=== PATIENT | female | born 1960 | race Caucasian/White ===

== ENCOUNTER 2020-01-14 14:15 | Outpatient (RCR) | payer OTHER, SELFPAY ==
--- NOTE | 2019-11-19 14:04 | PTOPEVAL ---
Thank you for referring this patient to [facility]. Please review, sign, date and return this plan of care ABBY. Pt referred to therapy due to chronic right shoulder pain with impingement. Recently received cortisone injection. She requires additional skilled therapy to address impairments, improve function with right UE, and provide skilled teaching for HEP and improved movement pattern. Cont PT 2-3x/wk x 6 wk. I agree with and certify that the following plan of care is medically necessary. Referring Physician Date Attending Provider: PHYSICIAN NOT ON STAFF Referring Provider: Dr. Gianfranco Mercedes MD *PT Outpatient Evaluation Start: 11/19/19 13:22 Freq: Status: Active Protocol: Document 11/19/19 13:21 CAP (Rec: 11/19/19 14:03 [facility] [id number]) Therapy Assessment Status Assessment Status Assessment Status Evaluation Outpatient Past Medical History Neurological History Hx Neurological Disorders No Significant History Cardiovascular History Hx Cardiac Disorders No Significant History Respiratory History Hx Respiratory Disorders No Significant History Gastrointestinal History Hx Gastrointestinal Disorders No Significant History Musculoskeletal History Hx Arthritis Yes: spine Hx Other Musculoskeletal Disorders Yes: cubital tunnel release, right Evaluation Information Problem Diagnosis right shoulder impingment Onset 2-3 years Cause unknown Subjective Information Reports she has been having Query Text:As Reported By Patient/ issues with her shoulder for Family the 2-3 years. Denies any injury that started the pain. She contributes her symptoms to her job. She received a cortison injection on 11/13/19. She reports increased pain and difficulty with all reaching activities. She is unable to sleep in her right shoulder due to pain. 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 She has increased pain with carrying objects. She will crocket for a hobby with increased neck pain more than shoulder pain. She has increased pain with resistance ex at the gym. She also performs cardio activities. She has to focus on not gaurding her shoulder
[2019-12-24 09:12] VITALS: BP_SYST 180
--- NOTE | 2019-12-24 13:32 | PTOPEVAL ---
Thank you for referring this patient to [facility]. Please review, sign, date and return this plan of care ABBY. Pt has received 6 therapy visits from 11/19/19-12/24/19 to address impairments related to right shoulder restrictions and pain. She is demonstrating progress with shoulder range, strength and function. She is progressing towards therapy goals. She requires additional skilled therapy to achieve max function. Recommend additional PT 2x/wk x 4 wk. I agree with and certify that the following plan of care is medically necessary. Referring Physician Date Admitting Provider: Attending Provider: PHYSICIAN NOT ON STAFF Referring Provider: *PT Outpatient Re-Evaluation Start: 11/19/19 13:22 Freq: Status: Active Protocol: Document 12/24/19 09:12 JORGE A (Rec: 12/24/19 09:49 JORGE A [email or web address]) Therapy Assessment Status Assessment Status Re-evaluation Evaluation Information Problem Diagnosis right shoulder impingment Onset 2-3 years Cause unknown Additional Evaluation Detail Reports she has been having issues with her shoulder for the 2-3 years. She received a cortison injection on 11/13/19. Subjective Information She reports the tape did help Query Text:As Reported By Patient/ her pain and soreness of the Family shoulder. She is sore today after pulling weeds for 1 hour yesterday. She is able to perform reaching act better, but cont to have pain and soreness. 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 Any weight hanging from her arms causes increased pain. She also c/o right thumb pain and weakness that limits her performing with fine motor activities. She is performing her HEP consistently. Pain Assessment Timing of Pain Assessment Timing of Pain Assessment Re-assessment Pain Scale Pain Scale Used Numeric (1 - 10) Self Report Pain Assessment Right Shoulder(s) Reported Pain Level 3 Pain Description Soreness,Tightness Pain Frequency Chronic Lowest Pain Intensity 1 Greatest Pain Intensity 8 Pain Aggravating Factors Exercise/Activity,Lifting,
--- NOTE | 2020-01-01 11:34 | PCPTNOTE ---
Patient called & cancelled scheduled appointment this date due to no reason provided.
--- NOTE | 2020-01-03 15:01 | PCPTNOTE ---
Patient called & cancelled scheduled appointment this date due to car issues.
[2020-01-07 14:32] VITALS: BP_SYST 170
--- NOTE | 2020-01-15 16:10 | PCPTNOTE ---
Admitting Provider: Attending Provider: PHYSICIAN NOT ON STAFF Patient:Laura Arreola Date of :1960 Patient has been seen for 10 PT visits from 11/19/2019 to 01/14/20. She demonstrates improved UE function, improved shoulder range and strength. She is indep with her HEP. She has reached maximal potential with skilled therapy at this time. The goals have been partially met. Thank you for referring this patient to [facility]. Please review, sign, date and return this discharge summary ABBY. I have been updated about the patient's current status and I agree with discharge from the above service at this time. Referring Physician Date
== END 2020-01-16 08:38 | disposition home or self-care (01) ==
LOC: ANHPT 14:15
DX: M75.41 Impingement syndrome of right shoulder (principal)
CPT/HCPCS: 97110; 97140; 97161

== ENCOUNTER 2021-09-05 14:27 | Emergency (ER) | payer OTHER, SELFPAY ==
[2021-09-05 14:39] VITALS: BP 115/78; PULSE 87; RESP 12; TEMP 36.7; O2SAT 100
--- NOTE | 2021-09-05 15:15 | ED.FEMALEGU ---
HPI - Female Genitourinary General Chief complaint: Urogenital-Female Stated complaint: pos uti/kidney inf Time Seen by Provider: 09/05/21 15:04 Source: patient and RN notes reviewed Mode of arrival: ambulatory Limitations: no limitations History of Present Illness HPI Narrative: Patient presents today complaining of a 4 to 5-day history of dysuria, urinary frequency, and mild left flank pain. Denies fever, chills, sweats, or any additional symptoms. She took a dose of Azo approximately 3 hours prior to arrival. No recent antibiotic use. MD elicited complaint: UTI Related Data Home Medications Medication Instructions Recorded Confirmed Glucosamine 09/05/21 Zyrtec 09/05/21 cyclobenzaprine mg 09/05/21 estradiol-norethindrone acet tablet 09/05/21 meloxicam 09/05/21 Allergies Allergy/AdvReac Type Severity Reaction Status Date / Time codeine Allergy Unknown Verified 09/13/18 13:49 Review of Systems Review of Systems: CONSTITUTIONAL: Denies body aches, fever, chills, or sweats. EYES: Denies visual changes, redness, or discharge. ENT: Denies rhinorrhea, congestion, sore throat, or otalgia. CARDIOVASCULAR: Denies chest pain, palpitations, or edema. RESPIRATORY: Denies cough or dyspnea. GASTROINTESTINAL: Denies abdominal pain, nausea, vomiting, or diarrhea. GENITOURINARY: + Dysuria, frequency, left flank pain. Denies hematuria SKIN: Denies rash, itching, or wounds. MUSCULOSKELETAL: Denies back pain, joint pain, or myalgia. NEUROLOGIC: Denies headache, numbness, tingling, or weakness. PSYCH: Denies depression or anxiety. PMFSH Social History Social History Smoking status: Never smoker Alcohol intake: current Comments At time of signature, I have reviewed and agree with nursing past medical, surgical, social and family history unless otherwise noted. Please see nursing chart for further information. There is no relevant family history pertinent to the presenting complaint Exam Narrative: GENERAL: Well-appearing, well-nourished, and in no acute distress. HEAD: Normocephalic, atraumatic. EYES: EOMI. No redness or drainage. Conjunctivae normal. ENT: Mucous membranes pink and moist. NECK: Normal AROM. CHEST: No respiratory distress. Clear to auscultation. HEART: Regular rate and rhythm. No murmur appreciated. Normal peripheral pulses. ABDOMEN: Soft, nondistended, normal active bowel sounds. Mild suprapubic tenderness.-CVAT MUSCULOSKELETAL: No bony tenderness. EXTREMITIES: Normal range of motion. No edema. SKIN: Warm, dry, no rash. Capillary refill normal. Normal skin turgor. NEURO: No focal deficits. Alert and oriented x3. Gait steady. PSYCH: Normal affect. No signs of depression or anxiety. Course Vital Signs Vital signs: Vital Signs Temperature 98.1 F 09/05/21 14:39 Pulse Rate 87 09/05/21 14:39 Respiratory Rate 12 09/05/21 14:39 Blood Pressure 115/78 09/05/21 14:39 Pulse Oximetry 100 09/05/21 14:39 Temperature 98.1 F 09/05/21 14:39 Pulse Rate 87 09/05/21 14:39 Respiratory Rate 12 09/05/21 14:39 Blood Pressure 115/78 09/05/21 14:39 Pulse Oximetry 100 09/05/21 14:39 Reviewed MDM - Female Genitourinary Differential Diagnosis Differential diagnosis: Likely urinary tract infection, vaginitis and cystitis Lab Data Attestation: I reviewed the patient's lab results. Labs: Urine Glucose Trace Reference Range: Negative Urine Bilirubin 1+ Reference Range: Negative Urine Ketone Trace Reference Range: Negative Urine Specific [place] 1.020 Reference Range:1.001-1.035 Urine Blood Negat
== END 2021-09-05 15:23 | disposition home or self-care (01) ==
PROVIDERS: Emergency Provider Nurse Practitioner; PCP Nurse Practitioner
DX: N30.00 Acute cystitis without hematuria (principal)
CPT/HCPCS: 81003; 87086; 99213; G0463

== ENCOUNTER 2022-06-30 14:27 | Outpatient (CLI) | payer OTHER, SELFPAY ==
--- NOTE | ~2022-06-30 | MR_ITS ---
EXAMINATION: MR brain/brain stem wo/w con DATE: 06/30/2022 15:33 INDICATION: Chronic hemifacial spasm. TECHNIQUE: Magnetic resonance imaging (MRI) of the brain and brainstem was performed without and with 11 mL MultiHance intravenous contrast. COMPARISON: None. FINDINGS: There are scattered areas of nonspecific increased T2-weighted signal intensity in the cere bral white matter, which is within normal limits for the patient's age. There is no intracranial hemo rrhage, acute infarction, or abnormal intracranial mass lesion. The ventricles are normal in size. Th e trigeminal nerves and facial nerves are normal. The paranasal sinuses are clear. The orbits are nor mal. There is a small right mastoid effusion. The internal auditory canals and inner and middle ears are normal. IMPRESSION: 1. Normal aging brain. Reviewed, dictated and finalized at location A. IMPRESSION: 1. Normal aging brain.
== END 2022-06-30 14:28 | disposition home or self-care (01) ==
PROVIDERS: PCP Nurse Practitioner; Visit Provider Specialist
DX: G51.32 Clonic hemifacial spasm, left (principal)
CPT/HCPCS: 70553; A9577

== ENCOUNTER 2025-01-21 11:27 | Emergency (ER) | payer OTHER, SELFPAY ==
--- NOTE | ~2025-01-21 | XR_ITS ---
XR chest 2V Ordering provider: Heather Goncalves History: 64 years Female with . palpitations, SOB . Comparison: None. FINDINGS: MEDIASTINUM: The cardiac silhouette is not enlarged. LUNGS: No infiltrates, effusions or pneumothorax. OTHER: No free air under the diaphragm. IMPRESSION: No acute cardiopulmonary pathology. Reviewed, dictated and finalized at location A.
[2025-01-21 11:36] VITALS: BP 131/75; PULSE 88; RESP 17; TEMP 36.6; O2SAT 99
--- NOTE | 2025-01-21 13:19 | ED_ITS ---
HPI - Female Genitourinary General Chief complaint: Urogenital-Female <Heather Goncalves PA-C - Last Filed: 01/22/25 09:14> Stated complaint: UTI symptoms <Heather Goncalves PA-C - Last Filed: 01/22/25 09:14> Time Seen by Provider: 01/21/25 13:19 <Heather Goncalves PA-C - Last Filed: 01/22/25 09:14> Focused HPI: This is a 64 year old female that presents to the ER for urinary symptoms. Reports urinary frequency, back pain, dysuria. Also reports she feels like her heart is racing and she is having trouble catching her breath during these episodes. Also reports swelling in her ankles. Denies fever, chest pain, vomiting. GENERAL: Well-appearing, well-nourished, and in no acute distress. HEAD: Normocephalic, atraumatic. CHEST: Clear to auscultation. ?No respiratory distress. HEART: Regular rate and rhythm.? NEURO: ?Alert and oriented x3. Patient screened in triage and initial orders placed.? ?Additional care and disposition to be based upon?diagnostic testing and treatment. <Heather Goncalves PA-C - Last Filed: 01/22/25 09:14> History of Present Illness HPI Narrative: I agree with the above HPI <Tee Thornton MD - Last Filed: 01/21/25 21:47> Related Data Home medications: Home Medications ?Medication ?Instructions ?Recorded ?Confirmed ?Last Taken ?Type Zyrtec 09/05/21 05/14/24 Unknown History cholecalciferol (vitamin D3) PO 03/16/22 05/14/24 Unknown History zinc acetate 50 mg (zinc) capsule 50 mg PO DAILY 03/16/22 05/14/24 Unknown History (Galzin) <Heather Goncalves PA-C - Last Filed: 01/22/25 09:14> Allergies/Adverse reactions: Allergies Allergy/AdvReac Type Severity Reaction Status Date / Time sulfamethoxazole (From Allergy Mild Itching Verified 01/21/25 11:43 Bactrim) trimethoprim (From Bactrim) Allergy Mild Itching Verified 01/21/25 11:43 codeine Allergy Unknown Unknown Verified 01/21/25 11:43 <Heather Goncalves PA-C - Last Filed: 01/22/25 09:14> Review of Systems 2 Review of Systems: All systems reviewed & are unremarkable except as noted in HPI and below <Tee Thornton MD - Last Filed: 01/21/25 21:47> PMFSH Past Medical History Medical History: Medical History Abnormal Pap smear of cervix Breast implant removal status (05/13/22) Ruptured silicone breast implant Screening mammogram, encounter for <Heather Goncalves PA-C - Last Filed: 01/22/25 09:14> Surgical History Surgical History: Surgical History History of appendectomy History of tonsillectomy <Heather Goncalves PA-C - Last Filed: 01/22/25 09:14> Family History Family History: Family History Father Hypertension Diabetes mellitus Mother Breast cancer Daughter Multiple sclerosis <Heather Goncalves PA-C - Last Filed: 01/22/25 09:14> Social History Social History: Social History (Updated 05/14/24 @ 09:30 by Chica Quach MA) Smoking status: Never smoker Alcohol intake: current Alcohol use details: 1-2 month Substance use: never Substance use type: does not use Do You Feel Safe in your Home?: Yes Lack of Transportation: No Lack of Food: Never True Current Housing: I Have Housing Concerned About Future Housing: No Difficulty Paying Gas/Electric Bills: No Difficulty Paying for Meds: No Currently Unemployed: No Education: High School Diploma/GED Difficulty w/ Childcare or Family Care: No Living arrangements: other Additional living arrangements comments: significant other Occupation/Education: occupation 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 HEAD: normocephalic, atraumatic. EYES: PERRLA/EOMI, conjunctivae clear. NOSE: Normal no drainage EARS:TMS clear with good light reflex. THROAT: Pharynx clear, no exudate. NECK: Supple. No adenopathy, no masses. RESPIRATORY: Airway patent, respirations nonlabored. Clear to auscultation bilaterally, no rales, rhonchi, wheezing. CARDIOVASCULAR: Regular rate and rhythm without murmurs rubs or gallops. ABDOMINAL: Soft, nontender, nondistended, normal bowel sounds MUSCULOSKELETAL: Moves all extremities. Strength/ROM intact, No edema, No calf tenderness. NEURO: Alert. Cranial nerves II through XII intact. Good gait. Good coordination SKIN: Warm, dry. Normal Color <Tee Thornton MD - Last Filed: 01/21/25 21:47> Course Vital Signs Vital signs: Vital Signs Temperature 97.9 F 01/21/25 11:36 Pulse Rate 88 01/21/25 11:36 Respiratory Rate 17 01/21/25 11:36 Blood Pressure 131/75 01/21/25 11:36 Pulse Oximetry 99 01/21/25 11:36 Oxygen Delivery Room Air 01/21/25 11:36 Temperature 98.2 F 01/21/25 18:04 Pulse Rate 88 01/21/25 18:04 Respiratory Rate 17 01/21/25 18:04 Blood Pressure 137/74 01/21/25 18:04 Pulse Oximetry 97 01/21/25 18:04 Oxygen Delivery Room Air 01/21/25 11:36 <Heather Goncalves PA-C - Last Filed: 01/22/25 09:14> Vital Signs Temperature 97.9 F 01/21/25 11:36 Pulse Rate 88 01/21/25 11:36 Respiratory Rate 17 01/21/25 11:36 Blood Pressure 131/75 01/21/25 11:36 Pulse Oximetry 99 01/21/25 11:36 Oxygen Delivery Room Air 01/21/25 11:36 Temperature 98.2 F 01/21/25 18:04 Pulse Rate 88 01/21/25 18:04 Respiratory Rate 17 01/21/25 18:04 Blood Pressure 137/74 01/21/25 18:04 Pulse Oximetry 97 01/21/25 18:04 Oxygen Delivery Room Air 01/21/25 11:36 <Tee Thornton MD - Last Filed: 01/21/25 21:47> MDM - Female Genitourinary MDM Narrative Medical decision making narrative: 64-year-old female presents emergency department for evaluation for intermittent rapid heart rate. Patient is not tachycardic emergency department. Patient is afebrile with no leukocytosis and a stable hemoglobin of 13.6. No significant abnormalities on the patient's CMP. Patient's pro BNP is not elevated. UA was negative for infection. Chest x-ray shows no acute cardiopulmonary abnormality. Patient was updated on Ortho workup. Patient was comfortable plan for discharge and close follow-up with her primary care physician with anticipated plan of getting set up with a Holter monitor as outpatient. All questions concerns were addressed patient was well-appearing at time of discharge. <Tee Thornton MD - Last Filed: 01/21/25 21:47> Differential Diagnosis Differential diagnosis: Likely urinary tract infection and other (AFib, SVT, sinus tachycardia) < Tee Thornton MD - Last Filed: 01/21/25 21:47> Lab Data Attestation: I reviewed the patient's lab results. <Tee Thornton MD - Last Filed: 01/21/25 21:47> Result diagrams: 01/21/25 14:42 01/21/25 14:42 <Heather Goncalves PA-C - Last Filed: 01/22/25 09:14> Labs: Lab Results 01/21/25 01/21/25 Range/Units 13:20 14:42 WBC 9.6 (4.5-10.0) K/mm3 RBC 4.40 (4.2-5.4) M/mm3 Hgb 13.6 (12.0-15.0) g/dL Hct 42.0 (37.0-47.0) % MCV 95.5 (80-100) fl MCH 30.9 (26-34) pg MCHC 32.4 (32-36) g/dl RDW 11.9 (11.5-14.5) % Plt Count 358 (150-375) k/mm3 MPV 8.7 (7.4-10.4) fl Immature Gran % (Auto) 0.6 H (0-0.5) % Neut % (Auto) 65.7 (45.5-73.1) % Lymph % (Auto) 24.4 (18.3-44.2) % Mcdonald % (Auto) 8.3 (2.6-8.5) % Eos % (Auto) 0.6 (0-4.4) % Baso % (Auto) 0.4 (0.2-1.2) % Lymph # (Auto) 2.34 (0.9-3.2) K/mm3 Mcdonald # (Auto) 0.8 H (0.1-0.6) K/mm3 Eos # (Auto) 0.1 (0-0.3) K/mm3 Baso # (Auto) 0.0 (0.0-0.1) K/mm3 Abs Immat Gran (auto) 0.06 H (0.00-0.031) K/mm3 Absolute Neuts (auto) 6.3 (1.3-6.7) K/mm3 Absolute Nucleated RBC 0.000 (0.0-0.012) K/mm3 Nucleated RBC % 0.0 (0.0-0.2) % Sodium 140 (137-145) mmol/L Potassium 3.9 (3.4-5.0) mmol/L Chloride 102 (98-107) mmol/L Carbon Dioxide 28 (22-30) mmol/L Anion Gap 10 (4-12) mmol/L BUN 11 (7-17) mg/dL Creatinine 0.54 L (0.7-1.0) mg/dL Estim Creat Clear Calc 69 ml/min Estimated GFR > 60 (59 - ) Glucose 94 (65-110) mg/dL Calcium 9.6 (8.4-10.2) mg/dL Total Bilirubin 0.2 (0.2-1.3) mg/dL AST 37 H (14-36) U/L ALT 41 H (6-35) U/L Alkaline Phosphatase 131 H (38-126) U/L NT-Pro-B Natriuret Pep 80 (19.9-100) pg/mL Total Protein 8.0 (6.3-8.2) g/dL Albumin 4.5 (3.5-5.1) g/dL Urine Color Yellow (Yellow) Urine Appearance Clear (Clear) Urine pH 7.0 (5.0-9.0) Ur Specific [place] 1.015 (1.001-1.035) Urine Protein Negative (Negative) mg/dL Urine Glucose (UA) Negative (Negative) mg/dL Urine Ketones Negative (Negative) mg/dL Ur Blood (Man) Negative (Negative) Urine Nitrate Negative (Negative) Urine Bilirubin Negative (Negative) Urine Urobilinogen 0.2 (<2.0) mg/dL Leukocyte Esterase Rfl Negative (Negative) CELESTINO/UL <Heather Goncalves PA-C - Last Filed: 01/22/25 09:14> Lab Results 01/21/25 01/21/25 Range/Units 13:20 14:42 WBC 9.6 (4.5-10.0) K/mm3 RBC 4.40 (4.2-5.4) M/mm3 Hgb 13.6 (12.0-15.0) g/dL Hct 42.0 (37.0-47.0) % MCV 95.5 (80-100) fl MCH 30.9 (26-34) pg MCHC 32.4 (32-36) g/dl RDW 11.9 (11.5-14.5) % Plt Count 358 (150-375) k/mm3 MPV 8.7 (7.4-10.4) fl Immature Gran % (Auto) 0.6 H (0-0.5) % Neut % (Auto) 65.7 (45.5-73.1) % Lymph % (Auto) 24.4 (18.3-44.2) % Mcdonald % (Auto) 8.3 (2.6-8.5) % Eos % (Auto) 0.6 (0-4.4) % Baso % (Auto) 0.4 (0.2-1.2) % Lymph # (Auto) 2.34 (0.9-3.2) K/mm3 Mcdonald # (Auto) 0.8 H (0.1-0.6) K/mm3 Eos # (Auto) 0.1 (0-0.3) K/mm3 Baso # (Auto) 0.0 (0.0-0.1) K/mm3 Abs Immat Gran (auto) 0.06 H (0.00-0.031) K/mm3 Absolute Neuts (auto) 6.3 (1.3-6.7) K/mm3 Absolute Nucleated RBC 0.000 (0.0-0.012) K/mm3 Nucleated RBC % 0.0 (0.0-0.2) % Sodium 140 (137-145) mmol/L Potassium 3.9 (3.4-5.0) mmol/L Chloride 102 (98-107) mmol/L Carbon Dioxide 28 (22-30) mmol/L Anion Gap 10 (4-12) mmol/L BUN 11 (7-17) mg/dL Creatinine 0.54 L (0.7-1.0) mg/dL Estim Creat Clear Calc 69 ml/min Estimated GFR > 60 (59 - ) Glucose 94 (65-110) mg/dL Calcium 9.6 (8.4-10.2) mg/dL Total Bilirubin 0.2 (0.2-1.3) mg/dL AST 37 H (14-36) U/L ALT 41 H (6-35) U/L Alkaline Phosphatase 131 H (38-126) U/L NT-Pro-B Natriuret Pep 80 (19.9-100) pg/mL Total Protein 8.0 (6.3-8.2) g/dL Albumin 4.5 (3.5-5.1) g/dL Urine Color Yellow (Yellow) Urine Appearance Clear (Clear) Urine pH 7.0 (5.0-9.0) Ur Specific [place] 1.015 (1.001-1.035) Urine Protein Negative (Negative) mg/dL Urine Glucose (UA) Negative (Negative) mg/dL Urine Ketones Negative (Negative) mg/dL Ur Blood (Man) Negative (Negative) Urine Nitrate Negative (Negative) Urine Bilirubin Negative (Negative) Urine Urobilinogen 0.2 (<2.0) mg/dL Leukocyte Esterase Rfl Negative (Negative) CELESTINO/UL <Tee Thornton MD - Last Filed: 01/21/25 21:47> Imaging Data Radiologist's impression: Impressions Chest X-Ray 01/21/25 13:51 IMPRESSION: No acute cardiopulmonary pathology. <Tee Thornton MD - Last Filed: 01/21/25 21:47> Critical Care Time Critical Care Time Critical Care Time: No <Heather Goncalves PA-C - Last Filed: 01/22/25 09:14> Discharge Plan Discharge Clinical Impression: Heart palpitations <Heather Goncalves PA-C - Last Filed: 01/22/25 09:14> Patient Disposition: Home <Heather Goncalves PA-C - Last Filed: 01/22/25 09:14> Condition: Stable <Heather Goncalves PA-C - Last Filed: 01/22/25 09:14> Instructions: Antibiotic Form, Heart Palpitations (DC) <Heather Goncalves PA-C - Last Filed: 01/22/25 09:14> Additional Instructions: Have close follow-up with your primary care physician. If you have any worsening symptoms and please call or return to the emergency department. <Heather Goncalves PA-C - Last Filed: 01/22/25 09:14> Patient Language: Macanese <Heather Goncalves PA-C - Last Filed: 01/22/25 09:14> Prescriptions: No Action Zyrtec Galzin 50 mg (zinc) capsule 50 mg PO DAILY cholecalciferol (vitamin D3) PO <Heather Goncalves PA-C - Last Filed: 01/22/25 09:14> Follow-up/Referrals: PHYSICIAN,POULTRY INSEMINATOR [Primary Care Provider] - <Heather Goncalves PA-C - Last Filed: 01/22/25 09:14>
--- NOTE | 2025-01-21 13:20 | ECG_ITS ---
Test Date: 2025-01-21 14:38:43 Measurements Intervals [place] Rate: 86 P: 73 [place]: 160 QRS: 51 QRSD: 81 T: 74 QT: 368 QTc: 442 Interpretive Statements SINUS RHYTHM BASELINE ARTIFACT- I, III NORMAL ECG No previous ECG available for comparison Electronically Signed On 01-21-2025 14:51:50 CDT by Jeremy Dumont D.O.
--- OUTSIDE RECORDS SUMMARY | 2025-01-21 13:30 | XMS_ITS | Patient Health Record ---
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 Phone Lawrence Menon Primary Care Provider Allergies Allergen (clinical drug ingredient) Drug/Non Drug Allergy documented on EMR Reaction Allergy Type Onset Date Status codeine codine (uncoded) Unknown Allergy Act pieter Reason For Referral No Information Medications Medication SIG (Take, Route, Frequency, Duration) Notes Start Date End Date Status Allergy Relief Cetirizine 10 MG 1 tablet as needed Orally Once a day Active Cyclobenzaprine HCl 10 MG 1 tablet at be dtime as needed Orally Once a day for 30 day(s) Active Medrol (Roderick) 4 MG as directed Orally 08/09/2022 Not-Taking hydrOXYzine HCl 25 mg TAKE 1 TABLET BY MOUTH THREE TIMES A DAY NEEDED for 30 Active Meloxicam 15 mg TAKE 1 TABLET BY MOUTH DAILY for 30 Active Fluticasone Propionate 50 MCG/ACT 1 spray in each nostril Nasally twice a day 08/26/2022 Active Activella 1-0.5 MG 1 tablet Orally Once a day for 30 day(s) Active Zinc 50 MG 1 tablet Orally Once a day for 30 day(s) Active Glucosamine Active Vitamin D-3 25 MCG (1000 UT) 1 capsule Orally Once a day for 30 day(s) Active One Daily - 1 tablet Orally Once a day for 30 day(s) Active Immunizations Vaccine Route Administration Date Status Comme nts FLU VAC NO PRSV 4VAL 6 mo+ IM Intramuscular 07/28/2021 Administered pt tolerated we ll. COVID-19 Moderna 2nd IM Intramuscular 06/05/2021 Administered EUA date 0. Consent signed and reviewed. Patient tolerated well. COVID-19 Moderna 1ST IM Intramuscular 05/08/2021 Administered Social History Tobacco Use: Social History Observation Description Date Details (start date - stop date) Never Smoker NA - NA Sex Assigned At : Social History Observation Description Sex Assigned At Female Dont use, Tobacco Use/Smoking Question Answer Notes Are you a nonsmoker Problems Problem Type SNOMED Code ICD Code Onset Dates Problem Status W/U Status Risk Notes Problem 92600368 Other chronic pain (G89.29) Active confirmed Problem Depression (535826919) Depression (F32.9) Active confirmed Problem 19982423 Anxiety (F41.9) Active confirmed Problem 984796532 Recurrent sinusitis (J32.9) Active confirmed Problem [id number] 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 Plan Of Treatment No Information Insurance Providers Payer Name Payer Address Payer Phone Subscriber Number Group Number Insured Name Patient Relationship to Insured Coverage Start Date Coverage End Date [facility] Attn Claims Department [address] [place] [id number] [phone] [id number] Laura Arreola Self - patient is the insured 1 [facility] Attn Claims Department [address] [address] [phone] [id number] Laura Arreola Self - patient is the insured 1 [facility] Attn Claims Department [address] [address] [phone] [id number] Laura Arreola Self - patient is the insured 2 Medical (General) History Surgical History Surgery Date(Month/Year) appendectomy tonsillectomy endometrial ablation breast augmentation Hospitalization History Reason Date(Month/Year) childbirth
--- OUTSIDE RECORDS SUMMARY | 2025-01-21 13:31 | XMS_ITS | Data Portability ---
Author Organization [place] - [facility], Main Office Address [address] [place] [address] Care Team Providers Care Cloud Consultant Name Role Phone MEGAN KRAFT Primary Care Provider [phone] MEGAN KRAFT Referring Provider ISELA MUSA Metal Plater ESTEPHANIE DELUNA Team Leader/Research Psychologist Assessment Encounter Date Assessment Date Assessment LastModified by Organization Details LastModified Time 02/02/2024 02/02/2024 10/14/2023: Chol 217, LDL 136 Not available 02/02/2024 10:28:56 02/08/2024 02/08/2024 10/14/2023: Chol 217, LDL 136 Not available 02/08/2024 16:37:00 02/10/2024 02/10/2024 The patient has severe osteoarthritis of the 1st carpometacarpal joint at the base of the thumb. She had a recent contusion to the dorsum of her wrist but this is only causing her mild discomfort her main complaint is with the basilar thumb joint. We talked about treatment options today she inquired about surgical options I discussed this in detail with her today including the procedure itself risks benefits limitations and alternatives and the recovery. And rehab and therapy that is involved postoperatively. For now she would like to try conservative measures I offered her oral prednisone and a shot of cortisone she wanted to proceed therefore under sterile conditions I injected the patient's right thumb into the CMC joint with 2 cc of 0.5% bupivacaine plain and 10 mg of Kenalog. The patient tolerated the procedure well. I will see her back in 6 weeks to see what impact treatment has had. She will use Tylenol for pain as needed try to avoid heavy repetitive use of the hand but her occupation precludes that for the most part. We will try conservative measures for awhile if she fails them her final option would be trapezial excision with suspension arthroplasty at the basilar thumb joint. She voiced understanding agrees with the above plan she will call for any further problems difficulties or questions. 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 We talked about treatment options we could give her a shot of cortisone every 3 months if necessary it has only been 2 months she declined any further treatment today she states it is tolerable for now. She will take Tylenol as needed we did talk about prescription nonsteroidal anti-inflammatory medication she declined a prescription she will take Advil or Aleve [id number] when necessary. She states she had a reaction to meloxicam 1 time so she wants to avoid those medications if possible. We did talk about surgical options in detail today I described the procedure to her for trapezial excision and suspension arthroplasty. She is going to wait as long as she can before she decides to go through with that. For now she will get by with conservative measures. She will call when she is ready for another shot of cortisone. She voiced understanding and agrees above plan she will call for any further problems difficulties or questions. We did talk about icing after a long day at work as well. Not available 04/09/2024 10:15:58 07/10/2024 07/10/2024 10/14/2023: Chol 217, LDL 136 07/03/2024: Chol 225, LDL 134 ALT 36 Not available 07/10/2024 17:22:23 Plan of Treatment Reminders Order Date Submit Date Provider Last Modified By Organization Details Last Modified Time Details Appointments None recorded. Lab vitamin D, 25-hydroxy , total, serum 2023 024 [email or web address], [address] [facility], [place], [address], 04/17/202 5 08:57:56 CMP, serum or plasma 2023 024 [email or web address], [address], [place], [address], 5 08:57:56 CBC w/ auto diff 2023 024 [email or web address] [facility], [address], [place], [address], 5 08:57:56 TSH + free T4, serum 2023 024 [email or web address] [facility], [address], [place], [address], 5 08:57:56 lipid panel, serum 2023 024 [email or web address], [address], [place], [address], 5 08:57:56 vitamin D, 25-hydroxy , total, serum 2023 024 [email or web address], [address], [place], [address], 4 11:50:15 CMP, serum or plasma 2023 024 [email or web address], [address], [place], [address], 4 11:50:15 CBC w/ auto diff 2023 024 [email or web address] [facility], [address], [place], [address], 4 11:50:16 TSH + free T4, serum 2023 024 STEPHANIE [facility], [address], [place], [address], 4 15:02:06 lipid panel, serum 2023 024 [email or web address] [facility], [address], [place], [address], 5 09:20:52 vitamin D, 25-hydroxy , total, serum 2023 024 [place] [address] [facility], [address], [place], [address], 4 11:50:15 CMP, serum or plasma 2023 024 [place] [address] [facility], [address], [place], [address], 4 11:50:14 CBC w/ auto diff 2023 024 [email or web address] [facility], [address], [place], [address], 4 11:50:14 TSH + free T4, serum 2023 024 [place] [address] [facility], [address] [facility], [place], [address], 4 11:50:15 lipid panel, serum 2023 024 [email or web address] [employer] [facility], [address] [facility], [place], [address], 4 11:50:[address] referral - Please call patient to schedule. 2023 024 [email or web address] Estephanie Deluna MD, [address], [address], [place], [address], 4 16:27:45 business intelligence reporting analyst referral - Please call patient to schedule. 2023 024 STEPHANIE Musa DPM, [address], [address], [place], [address], 4 10:37:43 orthopedic surgeon referral 2023 024 [email or web address] Hughes MD, [address] [facility], [place], [address], 4 09:28:32 Procedures colonoscop y screening (PROC) - Please call patient to schedule. 2023 024 [email or web address] Alaina Eagle MD, [address] [facility], [facility] [address], [place], [address], 4 16:15:04 injection/ aspiration joint/burs a (PROC) 2023 024 [email or web address] In-Office Order, Internal Use Only DO Not Attach Compendium DO Not Attach Compendium, Do Not Delete/merge, [id number] 4 12:33:00 colonoscop y screening (PROC) 2023 024 [email or web address] Gillian Gonzalez MD, [address] [facility], [facility] [address], [place], [address], 4 11:49:25 colonoscop y screening (PROC) 2023 024 rocky Gonzalez MD, [address] [facility], [facility] [address], [place], [address], 4 11:49:23 Surgeries None recorded. Imaging XR, wrist, 3 or more view - Stat hold and call Dr Reyna ramirez 2023 024 [facility] ([facility]), [address] [place], [address], 4 11:24:08 Medication Orders Crestor 10 mg tablet [email or web address] [facility], [address] [facility], [place], [address], 5 14:05:53 bupivacain e HCl 0.5 % (5 mg/mL) injection solution 2023 024 [email or web address] [facility], [address] [place] [address], [address], 4 13:54:12 Kenalog 10 mg/mL suspension for injection 2023 024 [email or web address] [facility], [address] [place] [address], [address], 4 13:54:12 prednisone 10 mg tablets in a dose pack 2023 024 [email or web address] [facility], [address] [place] [address], [address], 4 17:11:16 Patient TargetsNo targets recorded. Patient InstructionsNo instructions recorded. Reason for Referral Orthopedic Surgeon Referral for Pain of right wrist Referring Physician: Megan Kraft, Internal Medicine, Encounter Date: 02/02/2024 Metal Plater Referral for Plan tar fasciitis of right foot Please call patient to schedule. Referring Physician: Megan Kraft Internal Medicine, Encounter Date: 07/10/2024 Team Leader/Research Psychologist Referral for Sc reening for cardiovascular system disease Please call patient to schedule. Referring Physician: Megan Kraft Internal Medicine, Encounter Date: 07/10/2024 Results Created Date Observation Date Name Description Value Unit Range Abnormal Flag Note LastModifiedBy Organization Detail LastModifiedTime 02/02/20 24 02/02/2024 XR, wrist , 3 or more view [facility] [address] [id number] Alhaji ferrera Name: MARY JANE HENRIQUEZ Access ion #: [id number] Sex: F : 1959 4 Dictat ed By: Ashley Velasquez Attend ing Physic corina: HEATHER VILLATOROi Physic corina: HEATHER VILLATORO Exam Date: 2023 09:52 AM Exam Name: XR WRIST RT 3V+ Admitt ing Diagno sis(es ): CLINIC AL INDICA TION: pain right wrist TECHNI QUE: 3 radiog raphic views of the right wrist were obtain ed. Compar lance: none FINDIN GS/ IMPRES ORI: There is no eviden ce of acute fractu re or disloc ation. There is modera te osteoa rthros is of the first carpom etacar pal joint. There is no radiop aque foreig n body. Electr onical ly Signed by: Ashley Velasquez at 2023 10:22: 55 AM Page 1 [email or web address] [facility] (Imaging) [address] [place], [address], 05/07/2024 16:05:35 02/02/20 24 02/02/2024 imagi ng/di agnos tic resul t No observ ation record ed. [facility] [address] [place], [address], 02/02/2024 11:25:58 Result Notes None recorded. Problems Name Problem SNOMED Code Status Onset Date Resolution Date Notes Provider Name and Address Organization Details Recorded Time Menopausa l syndrome 797294358 Completed Not Available [facility] 3 14:59:04 Liver enzymes outside reference range 963290328 Completed Not Available [facility] 3 14:59:04 Abdominal pain 69321671 Active 2016 Not Available [facility] 3 14:59:04 Menopausa l symptom 61179237 Active Not Available [facility] 3 14:59:04 Weight increased 019487182 Active Not Available [facility] 3 14:59:04 Eruption 712191764 Active Not Available [facility] 3 14:59:04 Bronchiti s 29678733 Active Not Available [facility] 3 14:59:05 Sinusitis 84230537 Active Not Available [facility] 3 14:59:05 Osteoarth ritis 379087421 Active Not Available [facility] 3 14:59:05 Diarrhea 69260836 Active 2016 Not Available [employer] 3 14:59:05 Fatigue 49074873 Active Not Available [facility] 3 14:59:05 Groin mass 822639987 Active 2022 Dimitry yu MD [address], [address], [place], [address] , [facility] [employer] [facility] 3 13:39:01 Vitamin D deficienc y 49274309 Active 2023 Megan ramirez MD [address], [place], [address] , [facility] 4 15:48:21 Pain of left hip joint 69670657767 9100 Active 2023 Megan ramirez MD [address], [place], [address] , [facility] [employer] [facility] 4 16:01:57 Urinary symptoms 966804150 Active 2023 ERI Anderson, [facility] 4 16:51:31 Allergic rhinitis 59289289 Active 2023 ERI Anderson, [place] - [facility] 4 14:05:28 Pain of right wrist 86421601947 9100 Active 2023 Megan ramirez MD [address], [place], [address] , [facility] [employer] [facility] 4 10:17:13 Hyperlipi demia 23488369 Active 2023 Megan ramirez MD [address], [address], [place], [address] , [facility] 4 10:29:00 Osteoarth rosis of the carpometa carpal joint of the thumb 20509119 Active 2023 Magali Mitchell null, [facility] 4 12:31:23 Contusion of right wrist 05569906444 567967 Active 2023 KARMA Reese [address] [facility], [address] [address], [place], [address] , [facility] 4 14:17:33 Upper respirato ry infection 73764339 Active 2023 Louise Burt MA null, [facility] 4 12:50:10 Plantar fasciitis of right foot 07648221539 038077 Active 2023 Megan ramirez MD [address] [facility], [address] [address], [place], [address] , [facility] 4 17:33:26 Cough 85318900 Active 2023 Graciela Jaramillo MA null, [facility] 4 15:33:31 Acute urinary tract infection 141443674 Active 2024 Graciela Jaramillo MA null, [facility] 5 17:35:28 Problem Notes None recorded. Procedures Surgical History Date Name Laterality Status Provider Name and Address Organization Details Recorded Time 05/25/20 23 excision completed Diann Nicholson MA [facility] 05/26/2023 16:08:46 other completed Diann Nicholson MA [facility] 05/04/2023 15:19:31 Appendectomy completed Diann Nicholson MA [facility] 05/04/2023 15:19:41 Tonsillectomy completed Diann Nicholson MA [facility] 05/04/2023 15:19:49 Elbow arthroscopy/surge ry completed NIR Zamora [facility] 10/12/2023 15:34:20 other NIR Jones [facility] 10/12/2023 15:36:07 Imaging Results Imaging Date Name Status LastModified by Organiz [facility] Details LastModified Time 02/02/2024 XR, wrist, 3 or more view completed [email or web address] [facility] ([facility]) [address] [place], [address], 05/07/2024 16:05:35 02/02/2024 imaging/diag nostic result active [facility] [address] [place], [address], 02/02/2024 11:25:58 Procedure Notes None recorded. Medical Equipment None Reported. Allergies Allergen ID Allergen Name Allergen Category Reaction Reaction Severity Criticality Documentation Date Start Date Code Code System Note Provider Name and Address Organization Details Recorded Time 53812 codeine medicatio n itching Not available Not available 11/24/2022 2670 RxNorm Not Available [facility] 3 15:02:34 69259 Substance with sulfonami de structure and antibacte rial mechanism of action (substanc e) medicatio n nausea moderate Not available 05/05/2023 44958 8003 SNOMED Cristina taylor [place] [employer] 3 11:59:02 Medications Name Sig Start Date Stop Date Status Note LastModified by Organization Details LastModified Time amoxicill in 500 mg capsule TAKE 1 CAPSULE BY MOUTH THREE TIMES DAILY 10/12 completed Not Available Not Available Not Available Augmentin 875 mg-125 mg tablet Take 1 tablet every 12 hours by oral route. 2023 active Not Available Not Available Not Avai lable prednison e 10 mg tablet TAKE ONE TABLET BY MOUTH THREE TIMES DAILY FOR 3 DAYS, THEN 1 TAB TWICE DAILY FOR 2 DAYS, THE 1 TAB ONCE DAILY FOR ONE DAY active Not Available Not Available No t Available venlafaxi ne ER 75 mg capsule,e xtended release 24 hr Take 1 capsule every day by oral route for 90 days. active Not Available Not Available No t Available clindamyc in HCl 300 mg capsule TAKE 1 CAPSULE BY MOUTH EVERY 8 HOURS 10/12 completed Not Available Not Available Not Available azithromy js 250 mg tablet TAKE 2 TABLETS BY MOUTH FOR 1 DAY THEN TAKE 1 TABLET BY MOUTH DAILY FOR 4 DAYS active Not Available Not Available No t Available ibuprofen 800 mg tablet 01/18 completed Not Available Not Available Not Available fluconazo le 150 mg tablet Take one tablet PO, then repeat dose in 3 days 03/07 completed Not Available Not Available Not Available fluconazo le 200 mg tablet TAKE ONE TABLET BY MOUTH ON DAY ONE AND ONE TABLET 72 HOURS LATER 10/12 completed Not Available Not Available Not Available meloxicam 15 mg tablet TAKE 1 TABLET BY MOUTH ONCE DAILY 02/01 completed Not Available Not Available Not Available phenazopy ridine 200 mg tablet TAKE 1 TABLET BY MOUTH THREE TIMES DAILY 10/12 completed Not Available Not Available Not Available bupivacai ne HCl 0.5 % (5 mg/mL) injection solution Take 10 mg by injectio n route. 2023 active Not Available Not Available Not Avai lable prednison e 20 mg tablet TAKE 2 TABLETS BY MOUTH ONCE DAILY FOR 2 DAYS 10/12 completed Not Available Not Available Not Available ciproflox acin 500 mg tablet TAKE 1 TABLET BY MOUTH TWICE DAILY active Not Available Not Available No t Available sulfameth oxazole 800 mg-trimet hoprim 160 mg tablet TAKE 1 TABLET BY MOUTH EVERY 12 HOURS 10/12 completed Not Available Not Available Not Available omeprazol e 40 mg capsule,d elayed release Take 1 capsule every day by oral route. active Not Available Not Available No t Available tramadol 50 mg tablet TAKE 1 TABLET BY MOUTH EVERY 6 HOURS NEEDED FOR PAIN 10/12 completed Not Available Not Available Not Available prednison e 10 mg tablets in a dose pack Take 1 tab by mouth, 3 times a day for 3 daysTake 1 tab by mouth 2 times a day for 2 daysTake 1 tab by mouth once a day for 1 day 07/10 completed Not Available Not Available Not Available alprazola m 0.5 mg tablet TAKE 1 2 TO 1 TABLET 1 HOUR PRIOR TO APPOINTM ENT 10/12 completed Not Available Not Available Not Available Kenalog 10 mg/mL suspensio n for injection Take 10 mg by injectio n route. 2023 active ND: [id number] [id number] Not Available Not Available Not Available cephalexi n 500 mg capsule TAKE 1 CAPSULE BY MOUTH TWICE DAILY 10/12 completed Not Available Not Available Not Available venlafaxi ne 37.5 mg tablet 11/29 completed Not Available Not Available Not Available neomycin- polymyxin -dexameth 3.5 mg/mL-10, 000 unit/mL-0 .1% eye drops INSTILL 1 DROP INTO LEFT EYE THREE TIMES DAILY FOR 5 DAYS 10/12 completed Not Available Not Available Not Available nitrofura ntoin macrocrys larry 100 mg capsule TAKE 1 CAPSULE BY MOUTH TWICE DAILY 10/12 completed Not Available Not Available Not Available triamcino lone acetonide 0.1 % topical ointment APPLY 2 TO 3 OINTMENT TOPICALL Y TO THE AFFECTED AREA(S) ONCE DAILY FOR ITCHING 10/12 completed Not Available Not Available Not Available Gentle Laxative (bisacody l) 5 mg tablet,de layed release TAKE 6 TABLETS BY MOUTH AT 8AM ON 05/03/24 active Not Available Not Available No t Available diclofena c potassium 50 mg tablet Take 1 tablet 3 times a day by oral route. active Not Available Not Available No t Available omeprazol e 20 mg capsule,d elayed release Take 1 capsule twice a day by oral route active Not Available Not Available No t Available hydroxyzi ne HCl 25 mg tablet 10/12 completed Not Available Not Available Not Available zolpidem 5 mg tablet 11/29 completed Not Available Not Available Not Available Cheratuss in AC 10 mg-100 mg/5 mL oral liquid Take 10 mL 3 times a day by oral route. active Not Available Not Available No t Available ibuprofen 600 mg tablet Take 1 tablet 3 times a day by oral route. active Not Available Not Available No t Available Anusol-HC 25 mg rectal supposito ry Insert 1 supposit ory every day by rectal route at bedtime for 6 days. 05/02 completed Not Available Not Available Not Available methylpre dnisolone 4 mg tablets in a dose pack TAKE BY MOUTH DIRECTED ON INSIDE OF PACKAGE 10/12 completed Not Available Not Available Not Available fluticaso ne propionat e 50 mcg/actua tion nasal spray,clemente pension USE 1 SPRAY(S) IN EACH NOSTRIL ONCE DAILY NEEDED active Not Available Not Available No t Available naproxen 500 mg tablet Take 1 tablet twice a day by oral route as needed. active Not Available Not Available No t Available tobramyci n 0.3 %-dexamet hasone 0.1 % eye drops,clemente pension INSTILL 1 DROP INTO EACH EYE EVERY 6 HOURS FOR 3 DAYS 09/01 completed Not Available Not Available Not Available ezetimibe 10 mg tablet Take 1 tablet every day by oral route. active Not Available Not Available No t Available cyclobenz aprine 5 mg tablet Take 1 tablet(s ) BID and 2 tablets at bedtime. active Not Available Not Available No t Available rosuvasta tin 10 mg tablet TAKE 1 TABLET BY MOUTH ONCE DAILY 10/24 completed changed to Zetia 10/24/24 Not Available Not Available Not Available Prempro 0.3 mg-1.5 mg tablet Take 1 tablet every day by oral route. active Not Available Not Available No t Available nitrofura ntoin monohydra te/macroc rystals 100 mg capsule TAKE 1 CAPSULE BY MOUTH TWICE DAILY 10/12 completed Not Available Not Available Not Available Vitamin D3 active Not Available Not Available Not Available Sleep Aid (diphenhy dramine) active Not Available Not Available Not Available Multivita min 50 Plus active Not Available Not Available Not Available Elderberr y active Not Available Not Available Not Available ProAir HFA 90 mcg/actua tion aerosol inhaler 01/18 completed Not Available Not Available Not Available estradiol -norethin drone acet 0.5 mg-0.1 mg tablet TAKE 1 TABLET BY MOUTH ONCE DAILY 02/01 completed Not Available Not Available Not Available peg 3350-elec trolytes 236 gram-22.7 4 gram-6.74 gram-5.86 gram solution MIX AND TAKE ONE-HALF BY MOUTH AT 5PM ON 05/03/24, THEN TAKE ONE-HALF AT 5 AM ON 05/04/2407/10 completed Not Available Not Available Not Available omeprazol e 20 mg tablet,de layed release take 1 tablet twice a day by oral route 03/07 completed Not Available Not Available Not Available Allergy Relief (cetirizi ne) 10 mg tablet 10/12 completed Not Available Not Available Not Available Fluarix Quad (PF) 60 mcg (15 mcg x 4)/0.5 mL IM syringe 10/12 completed Not Available Not Available Not Available Fluzone Quad (PF) 60 mcg (15 mcg x 4)/0.5 mL IM syringe PHARMACI ST ADMINIST ERED IMMUNIZA TION ADMINIST ERED AT TIME OF DISPENSI NG 10/12 completed Not Available Not Available Not Available Afluria Qd 2019- (36 mos up)(PF)60 mcg (15 mcg x4)/0.5 mL IM syringe ADM 0.5ML IM UTD 10/12 completed Not Available Not Available Not Available BinaxNOW COVID-19 Ag Self Test kit TEST DIRECTED TODAY 10/12 completed Not Available Not Available Not Available Vitals Date Recorded Body height Body mass index (BMI) Body weight Body temperature Heart rate Oxygen saturation Oxygen saturation in Arterial blood by Pulse oximetry Systolic blood pressure Diastolic blood pressure Provider Name and Address Organization Details Last Updated DateTime 4 154.94 cm 23.8 kg/m2 76149.6 4 g 97.5 [degF] 80 /min 99 % 99 % 108 mm[Hg] 66 mm[Hg] Jill Hightower MA [facility] 4 10:08:50 Date Recorded Body height Body mass index (BMI) Body weight Body temperature Heart rate Systolic blood pressure Diastolic blood pressure Provider Name and Address Organization Details Last Updated DateTime 154.94 cm 23.1 kg/m2 34650.0 7 g 97.6 [degF] 84 /min 114 mm[Hg] 64 mm[Hg] Anna Rutherford Reji Yodio [facility] 4 16:31:04 Date Recorded Body height Body mass index (BMI) Body weight Provider Name and Address Organization Details Last Updated DateTime 02/10/2024 154.94 cm 23.1 kg/m2 56622.27 g Melony New [facility] 02/10/2024 12:14:12 Date Recorded Body height Body mass index (BMI) Body weight Provider Name and Address Organization Details Last Updated DateTime 04/09/2024 154.94 cm 24 kg/m2 46216.23 g Magali Mitchell [facility] 04/09/2024 09:41:42 Date Recorded Body height Body mass index (BMI) Body weight Body temperature Pain severity - 0-10 verbal numeric rating [Score] - Reported Heart rate Oxygen saturation Oxygen saturation in Arterial blood by Pulse oximetry Systolic blood pressure Diastolic blood pressure Provider Name and Address Organization Details Last Updated DateTime 4 154.94 cm 24.9 kg/m2 73497.1 9 g 96.8 [degF] 8 81 /min 99 % 99 % 110 mm[Hg] 68 mm[Hg] Jill Hightower MA [facility] 4 17:10:24 Social History Question Answer Notes LastModified by Organization Details LastModified Time Tobacco Smoking Status Never Smoker Diann Nicholson MA null, [facility] 05/04/2023 15:23:54 Do You Have An Advance Directive? No Information not available 10/12/2023 What Is Your Level Of Alcohol Consumption? Occasional Information not available 05/04/2023 What Is Your Level Of Caffeine Consumption? None Information not available 10/12/2023 In The 14 Days Before Symptom Onset, Have You Had Close Contact With A Laboratory-conf irmed COVID-19 While That Case Was Ill? No Information not available 10/12/2023 In The 14 Days Before Symptom Onset, Have You Had Close Contact With A Person Who Is Under Investigation For COVID-19 While That Person Was Ill? No Information not available 10/12/2023 Are You Currently Employed? Yes Information not available 05/04/2023 What Type Of Diet Are You Following? REGULAR Information not available 10/12/2023 Which Illicit Or Recreational Drugs Have You Used? Edibles Occasionally Information not available 10/12/2023 What Is The Highest Grade Or Level Of School You Have Completed Or The Highest Degree You Have Received? 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 No Information not available 02/02/2024 What Is The Fluoride Status Of Your Home? Unknown Information not available 10/12/2023 Do You Use Insect Repellent Routinely? No Information not available 02/02/2024 Where Do You Live? SingleLevelHouse Information not available 10/12/2023 Do You Have A Medical Power Of Water Quality Assistant? No Information not available 10/12/2023 What Was The Date Of Your Most Recent Tobacco Screening? 07/10/2024 Information not available 07/10/2024 How Many Children Do You Have? 2 Information not available 02/02/2024 Do You Have Any Pets? Yes Information not available 10/12/2023 What Is Your Relationship Status? [email or web address] Information not available 05/04/2023 Do You Use Your Seat Belt Or Car Seat Routinely? Yes Information not available 10/12/2023 Do You Have Smoke And Carbon Monoxide Detectors In Your Home? Yes Information not available 10/12/2023 Are You Passively Exposed To Smoke? No Information not available 10/12/2023 Are There Any Smokers In Your House? No Information not available 10/12/2023 Do You Feel Stressed (tense, Restless, Nervous, Or Anxious, Or Unable To Sleep At Night)? [id number] Information not available 10/12/2023 Do You Use Any Illicit Or Recreational Drugs? Yes Information not available 10/12/2023 Do You Use Sunscreen Routinely? No Information not available 02/02/2024 Has Tobacco Cessation Counseling Been Provided? No N/A Information not available 10/12/2023 Have You Recently Traveled Abroad? No Information not available 10/12/2023 Have You Used IV Drugs? No Information not available 02/02/2024 Do You Or Have You Ever Used Any Other Forms Of Tobacco Or Nicotine? No Information not available 10/12/2023 Sex: Female Functional Status Question Answer Note LastModified by Organizat ion Details LastModified Time What is your exercise level? Occasional Information not available 10/12/2023 Mental Status None recorded. Family History Relationship Description Onset Age of this Age Resolved Age Notes LastModified by Organization Details LastModified Time Father Hypertensive disorder [email or web address] Not available 2022 15:20:34 Father Diabetes mellitus [email or web address] Not available 2022 15:20:50 Daughter Multiple sclerosis [email or web address] Not available 06/26 16:38:09 Mother Malignant tumor of breast [email or web address] Not available 06/26 16:38:10 Medical History Condition Response NERVE DISEASE N BLINDNESS N RHEUMATIC FEVER N KIDNEY STONES N BLADDER PROBLEMS N MRSA N OTHER # 1 N POLIO N LUNG DISEASE/DISORDER N HISTORY OF DRUG ABUSE N COPD N RADIATION / CHEMOTHERAPY N Other # 2 N BLOOD DISEASES N EAR OR HEARING PROBLEMS N MUMPS N SHINGLES N BOWEL PROBLEMS N DEPRESSION (INCLUDING POST ) N FAILED BACK SYNDROME N STROKE/TIA N ULCERS N BENIGN PROSTATIC HYPERPLASIA N MEASLES N HYPOTENSION N MYOCARDIAL INFARCTION N OBESITY N GERD/NAUSEA N ANEURYSM N URINARY/BLADDER/KIDNEY PROBLEMS N CORONARY ARTERY DISEASE (CAD) N Do you have Advance directive? N ADDICTION CONCERNS N ENDOMETRIOSIS N Impotence N USE OF BLOOD THINNERS N SKIN PROBLEMS N GASTROINTESTINAL DISORDER N PERIPHERAL VASCULAR DISEASE N MUSCLE,JOINT OR BONE PROBLEMS N GASTROINTESTINAL BLEEDING N BLOOD CLOTS N ASTHMA N Abdominal Pain N CATARACTS N ARTERIAL INSUFFICIENCY N ERECTILE DYSFUNCTION N VARICOSITIES N GI PROBLEMS N Low Testosterone N INFERTILITY N AIDS/HIV N CHEMOTHERAPY / RADIATION N LIVER DISEASE N MALE HYPOGONADISM N HYPERTENSION N Deficiency N TOURETTE'S N ANXIETY DISORDER N BLOOD TRANSFUSION N ANEMIA/BLOOD DISORDER N CHRONIC EAR INFECTIONS N TUBERCULOSIS N GLAUCOMA N FOOT PROBLEM N DIVERTICULITIS N CHICKENPOX N SLEEP APNEA N BACK INJECTIONS N ALLERGIES/HAYFEVER N INFECTIOUS DISEASE N HEART ARRHYTHMIA N PROSTATE N ESRD N INSOMNIA N HIGH CHOLESTEROL / HYPERLIPIDEMIA N HYPERTHYROIDISM N EYE PROBLEMS N PVD N EDEMA N CHRONIC PAIN SYNDROME N HYPOTHYROIDISM N CONSTIPATION N CAROTID BLOCKAGE N BACK / NECK PROBLEMS N ATHEROSCLEROSIS N BREAST PROBLEMS N DIALYSIS N POLYCYSTIC OVARIES N ECZEMA N OSTEOPOROSIS N ARTHRITIS N APPENDICITIS N DIABETES, TYPE N BAD TEETH N VON WILLIBRAND'S DISEASE N ENT N HEARTBURN / REFLUX N GI N AUTISM SPECTRUM DISORDER (ASD) N POST LAMINECTOMY SYNDROME N HEPATITIS / LIVER DISEASE N GOUT N SLEEP DISORDER N ALZHEIMER'S DISEASE N Brain Problems N HERPES N DEMENTIA N HEADACHES/MIGRAINES N SEIZURES/EPILEPSY N VASCULAR DISEASE N PACEMAKER N DIZZINESS N HEART DISEASE/HEART PROBLEMS N KIDNEY DISEASE N MULTIPLE SCLEROSIS N NEUROPSYCHOLOGICAL N CARDIAC ARRHYTHMIA N CANCER: SPECIFY N ATRIAL FIBRILLATION N Gall Stones N PULMONARY EMBOLISM N AUTOIMMUNE DISEASE N Gynecological History Statement/Question Response Date of Last Colonoscopy Date of Last Mammogram Date of LMP Most Recent Bone Density Date of Last Pap Current Control Method None Obstetrics History GPAL:G 2 P 2 0 0 2 Type Value Multiple Births 0 Full Term 2 Induced 0 Spontaneous 0 Premature 0 Living 2 Ectopics 0 Total 2 Immunizations Vaccine Type Date Status Note Provider Nam e and Address Organization Details Recorded Time Influenza, split virus, quadrivalent, PF 07/07/2016 completed Not Available [facility] 15:02:29 Influenza, split virus, trivalent, PF 08/29/2013 completed Not Available [facility] 2022 15:02:30 Past Encounters Encounter ID Performer Location Encounter Start Date Encounter Closed Date Diagnosis/Indication Diagnosis SNOMED-CT Code Diagnosis ICD10 Code Diagnosis Note [id number] Dimitry yu MD [facility] General Surgery [address] [address] 05/05/2023 11:11:13 05/13/2023 08:27:47 Groin mass 896916033 R19.00 Left groin [id number] Dimitry yu MD [facility] General Surgery [address] [address] 05/17/2023 09:46:31 05/17/2023 12:42:04 Groin mass 032748322 R19.00 Left groin [id number] Dimitry yu MD [facility] General Surgery [address] [address] 06/02/2023 10:20:40 06/02/2023 12:21:31 [id number] Megan ramirez MD [facility] Internal Med [facility] [address] [address] 10/12/2023 15:17:59 10/12/2023 16:09:42 Screening - NAD 366587566 Z13.9 C-scope: Get this done Mammogram: Get this donePAP: Sees Dr Solano, is no OC for PMSDEXA: Get this Declined flu shot 10/12/2023 Get tdap if not doneGet shingrix and RSV vaccine RTC in 3 months, do labs, ER if worse, she did verbalize her understand ing of the above Screening mammography 24 304169 Z12.31 Screening for osteoporosis 001041408 Z13.820 Z78.0 Long-term drug therapy 400264978 Z79.899 Vitamin D deficiency 347 34758 E55.9 Screening for malignant neoplasm of colon 320310178 Z12.11 Pain of le ft hip joint 5914848711 00647 M25.552 Get a referral to Dr Hughes [id number] Keysha Fatima NP [facility] [address] [place] [address] 11/07/2023 10:11:22 11/07/2023 10:50:51 Pain of left hip joint 1180915257 67691 M25.331 [id number] Megan ramirez MD [facility] [address] [facility] [address] [place] [address] 02/02/2024 09:54:42 02/02/2024 10:38:56 Screening - NAD 194478333 Z13.9 C-scope: Get this done Mammogram: Get this done, wants to do this with her OB whom she will see in 02/2024 PAP: Sees Dr Solano, is no OC for PMSDEXA: 11/02/2023 : Neg Declined flu shot 10/12/2023 Get tdap if not doneGet shingrix and RSV vaccine RTC in 3 months, do labs, ER if worse, she did verbalize her understand ing of the above Long-term drug therapy 174325422 Z79.899 Vitamin D deficiency 347 41487 E55.9 Screening for malignant neoplasm of colon 922882008 Z12.11 Pain of le ft hip joint 5859878232 85566 M25.552 Keysha Moore NP ortho 11/07/2023 Today 02/02/2024 , this is resolved Pain of right wrist 3169 138063 45385 M25.531 Get xray R wristGet a referral to ortho Addendum: 02/02/2024 :Xray: No fracture, as per radiology, d/w patient Hyperlipidemia 70421702 E78.5 Not on any medsDiet and exerciseRe peat the labs [id number] Megan ramirez MD [facility] [address] [facility], [facility] [address] [place] [address] 02/08/2024 16:00:42 02/08/2024 16:50:12 Screening - NAD 402417331 Z13.9 C-scope: Get this done Mammogram: Get this done, wants to do this with her OB whom she will see in 02/2024 PAP: Sees Dr Solano, is no OC for PMSDEXA: 11/02/2023 : Neg Declined flu shot 10/12/2023 Get tdap if not doneGet shingrix and RSV vaccine RTC in 3 months, do labs, ER if worse, she did verbalize her understand ing of the above Vitamin D deficiency 347 75299 E55.9 Screening for malignant neoplasm of colon 053661954 Z12.11 Pain of le ft hip joint 3855438693 01390 M25.552 Keysha Moore [employer] ortho 11/07/2023 Today 02/02/2024 , this is resolved Pain of right wrist 3169 541493 54206 M25.531 Get xray R wristGet a referral to ortho Addendum: 02/02/2024 :Xray: No fracture, as per radiology, d/w patient OV 02/08/2024 : Has an apt with Adalid PARADA on 02/10/2024 Hyperlipidemia 10361109 E78.5 Not on any medsDiet and exerciseRe peat the labs [id number] KARMA Reese Precious[facility] [place] [address] [place] [address] 02/10/2024 12:03:53 02/10/2024 12:38:07 Pain of right wrist 8631099118 61150 M25.531 Osteoarthr osis of the carpometacarpal joint of the thumb 83088147 M18.9 osteoarthr itis of the right 1st carpometac arpal joint Contusion of right wrist 8455408352 3155432 S60.211A [id number] KARMA Reese S[facility] [place] [address] [place] [address] 04/09/2024 09:36:32 04/09/2024 10:12:00 Pain of right wrist 3047343605 17672 M25.531 Osteoarthr osis of the carpometacarpal joint of the thumb 90126485 M18.9 osteoarthr itis of the right 1st carpometac arpal joint [id number] Megan ramirez MD [facility] [address] [facility] [place] [address] [place] [address] 07/10/2024 16:36:44 07/10/2024 17:34:17 Screening - NAD 871491403 Z13.9 C-scope:Dr Gonzalez 05/04/2024 , next in 5 years Mammogram: Get this done, wants to do this with her OB whom she will see in 02/2024 PAP: Sees Dr Solano, is no OC for PMS DEXA: 11/02/2023 : Neg Declined flu shot 10/12/2023 Get tdap if not doneGet shingrix and RSV vaccine RTC in 3 months, do labs, ER if worse, she did verbalize her understand ing of the above Vitamin D deficiency 347 98454 E55.9 Screening for malignant neoplasm of colon 459997237 Z12.11 Pain of le ft hip joint 6292255643 09414 M25.552 Keysha Moore NP ortho 11/07/2023 Today 02/02/2024 , this is resolved Pain of right wrist 3169 719070 77301 M25.531 Get xray R wristGet a referral to ortho Addendum: 02/02/2024 :Xray: No fracture, as per radiology, d/w patient OV 02/08/2024 : Has an apt with Adalid PARADA on 02/10/2024 OV 07/10/2024 :Adalid PARADA 06/10/2024 Hyperlipidemia 30571923 E78.5 Get on crestor 10mg daily 07/10/2024 , side effects explained to her, she did state that her sister and mother has 'bad side effects' with chol medicine, unclear if with statins, she will notify if any symptoms occur with statin useDiet and exerciseRe peat the labs Screening for cardiovascular system disease 431302461 Z13.6 Plantar fa sciitis of right foot 0267111562 6402957 M72.2 Health Concerns Section Related Observation LastModified by Organization Detai ls LastModified Time None Recorded Concern Status LastModified by Organization Details LastModified Time None Recorded Advance Directives Directive N: Payers Encounter Date Sequence Insurance Name Policy Number Policy Carty Covered Member ID Carty Member ID Guarantor Name 02/02/2024 1 [facility] [id number] Mary Jane L Maxwell [id number] Mary Jane L Maxwell 02/08/2024 1 [facility] [id number] Mary Jane L Maxwell [id number] Mary Jane L Maxwell 02/10/2024 1 [facility] [id number] Mary Jane L Maxwell [id number] Mary Jane L Maxwell 04/09/2024 1 [facility] [id number] Mary Jane L Maxwell [id number] Mary Jane L Maxwell 07/10/2024 1 [facility] [id number] Mary Jane L Maxwell [id number] Mary Jane L Maxwell Notes Date Note Type Note Provider Name and Address Organization Details Recorded Time 02/02/2024 text/html OV 10/12/2023:He re to establish care Past Hx:Inguinal area lump removal Reviewed social family and surgical history Here to discuss above and get labs, does c/o L hip pain, states that 2 years ago she fell and injured her L hip, but did not seek any medical help for this OV 02/02/2024: Here for her routine apt, she is doing well today Megan Kraft MD [address], [place], [address], [facility] [employer] 02/02/2024 17:52:37 02/08/2024 text/html OV 10/12/2023:He re to establish care Past Hx:Inguinal area lump removal Reviewed social family and surgical history Here to discuss above and get labs, does c/o L hip pain, states that 2 years ago she fell and injured her L hip, but did not seek any medical help for this OV 02/02/2024: Here for her routine apt, she is doing well today Megan Kraft MD [address], [place], [address], [facility] 02/08/2024 18:00:53 02/10/2024 text/html the patient is a 63-year-old female who presents with a chronic history of right basilar thumb and wrist pain. She states most of the pain is localized to the basilar thumb joint but recently she was doing some cleaning and struck by a ceiling fan over the dorsum of the wrist. She has a very small abrasion which is clean and dry and healing well. She is somewhat tender here she states when the ceiling fans struck her wrist dorsally this also aggravated her basilar thumb joint. 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 She does note some deformity around the base of the thumb she tries to use her left hand as much as she can but typically has to use both hands for most of the cleaning that she does. Occasionally she will take some yflt-qkb-syeduff medication to help with this but states this really does not give her much relief. She states she has taken meloxicam previously but this caused some reactions so she is going to avoid oral anti-inflammatories. Occasionally she will do some exercise to work out if she tries to get on the floor do pushups or do any heavy gripping or grasping this causes significant aching pain in the basilar thumb joint as well. Recently after she had the ceiling fan hit her wrist she went to [facility] to have x-rays performed. X-rays demonstrated no acute fracture lesion or mass. The radiologist notes moderate osteoarthritis of the 1st CMC joint however I disagree I think this is severe in nature that is [id number] with a scalloping of the trapezium due to erosive changes along with significant marginal osteophytes off the radial side of the joint. Otherwise I agree with no acute fracture lesion mass otherwise seen. I reviewed these in detail today with the patient and showed her the arthritis she agrees with the above findings as well. She comes in today for initial evaluation and treatment.New past medical history sheet was reviewed and signed on the intake sheet of today's date drug allergies current medications family social history previous surgical history 10 point review of systems was reviewed discussed in detail today with the patient. KARMA Reese [address], [place], [address], [facility] 02/10/2024 14:18:04 04/09/2024 text/html The patient is a 63-year-old female who returns for recheck of her right hand. She has severe 1st carpometacarpal joint osteoarthritis with the beginning of erosion of the trapezium hypertrophic changes and some mild subluxation. 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 By the end of the day she has a lot of throbbing and aching at the basilar thumb joint of her right hand. The left hand is okay for now. Denies any trauma or injury. I gave her a shot of cortisone 2 months ago she comes in today for recheck she states this helped she also takes Tylenol daily when it the pain is really bad to help her sleep. She does not take any anti-inflammatory medication I talked to her about this today she would rather avoid that but will take some rhfr-eft-qyhacce Advil or Aleve as needed. She comes in today to talk about further treatment options for the future. KARMA Reese [address], [place], [address], [facility] 04/09/2024 10:16:20 07/10/2024 text/html OV 10/12/2023:He re to establish care Past Hx:Inguinal area lump removal Reviewed social family and surgical history Here to discuss above and get labs, does c/o L hip pain, states that 2 years ago she fell and injured her L hip, but did not seek any medical help for this OV 02/02/2024: Here for her routine apt, she is doing well today OV 07/10/2024: Here for her f/u apt, she is doing well, she did do the labs Megan Kraft MD [address], [place], [address], [facility] [employer] 07/11/2024 17:38:50 OBGyn Episode No OBEpisode recorded.
[2025-01-21 14:49] LABS: Basophils Percent Auto 0.4 % (0.2-1.2); Eosinophils Absolute Auto 0.1 K/mm3 (0-0.3); Eosinophils Percent Auto 0.6 % (0-4.4); Hemoglobin 13.6 g/dL (12.0-15.0); Immature Granulocyte Absolute 0.06 K/mm3 (0.00-0.031); Immature Granulocyte Percent A 0.6 % (0-0.5); Lymphocytes Absolute Auto 2.34 K/mm3 (0.9-3.2); Lymphocytes Percent Auto 24.4 % (18.3-44.2); Mean Corpuscular HGB Conc 32.4 g/dl (32-36); Mean Corpuscular Hemoglobin 30.9 pg (26-34); Mean Corpuscular Volume 95.5 fl (80-100); Mean Platelet Volume 8.7 fl (7.4-10.4); Monocytes Absolute Auto 0.8 K/mm3 (0.1-0.6); Monocytes Percent Auto 8.3 % (2.6-8.5); Neutrophils Absolute Auto 6.3 K/mm3 (1.3-6.7); Neutrophils Percent Auto 65.7 % (45.5-73.1); Platelet Count Result 358 k/mm3 (150-375); Red Cell Distribution Width 11.9 % (11.5-14.5); White Blood Count 9.6 K/mm3 (4.5-10.0)
[2025-01-21 15:08] LABS: Alanine Aminotransferase 41 U/L (6-35); Albumin Level 4.5 g/dL (3.5-5.1); Alkaline Phosphatase 131 U/L (38-126); Anion Gap 10 mmol/L (4-12); Aspartate Amino Transferase 37 U/L (14-36); Bilirubin,Total 0.2 mg/dL (0.2-1.3); Blood Urea Nitrogen 11 mg/dL (7-17); Calcium 9.6 mg/dL (8.4-10.2); Carbon Dioxide 28 mmol/L (22-30); Chloride 102 mmol/L (98-107); Estimated CRCL calculation 69 ml/min; Estimated Glomerular Filt Rate > 60; Glucose 94 mg/dL (65-110); Potassium 3.9 mmol/L (3.4-5.0); Sodium 140 mmol/L (137-145)
[2025-01-21 15:17] LABS: NT Pro B Type Natriuretic Pept 80 pg/mL (19.9-100)
[2025-01-21 15:37] LABS: Add Urine Microscopic? NO; Appearance Urine Clear (Clear); Bilirubin Urine Negative (Negative); Blood Urine Negative (Negative); Color Urine Yellow (Yellow); Glucose Urine UA Negative (Negative); Ketones Urine Negative (Negative); Leukocyte Esterase Ur Negative LEU/UL (Negative); Nitrate Urine Negative (Negative); Protein Urine Negative (Negative); Specific Grav Ur 1.015 (1.001-1.035); Urobilinogen Urine 0.2 mg/dL (<2.0)
[2025-01-21 18:04] VITALS: BP 137/74; PULSE 88; RESP 17; TEMP 36.8; O2SAT 97
== END 2025-01-21 18:01 | disposition home or self-care (01) ==
PROVIDERS: Physician Assistant; Emergency Provider Emergency Medicine
DX: R00.2 Palpitations (principal)
CPT/HCPCS: 36415; 71046; 80053; 81003; 83880; 85025; 93005; 99283

== ENCOUNTER 2025-04-02 15:25 | Outpatient (CLI) | payer OTHER, SELFPAY ==
--- NOTE | ~2025-04-02 | MR_ITS ---
MRI of the brain Clinical History: Facial nerve disorder Technique: Axial and sagittal T1-weighted images were acquired. These were followed by axial T2-weigh mel, diffusion weighted, gradient, and FLAIR images. COMPARISON: 06/30/2022 Findings: There is no acute infarct, intracranial hemorrhage or mass lesion. There are minimal chroni c white matter changes in the periventricular white matter. Ventricles and subarachnoid spaces are unremarkable. Orbits are unremarkable. Paranasal sinuses and m astoid air cells are clear. Major intracranial flow voids are intact. Sagittal midline structures are intact. IMPRESSION: No acute abnormality seen. Minimal chronic white matter change. Reviewed, dictated and finalized at location M.
--- OUTSIDE RECORDS SUMMARY | 2025-04-02 15:39 | XMS_ITS | Data Portability ---
Author Organization [place] - [facility] So[facility], Main Office Address [address] [place] [address] Care Team Providers Care Baggagemaster Name Role Phone MEGAN KRAFT Primary Care Provider MEGAN KRAFT Referring Provider ISELA MUSA Digital Marketing Lead ESTEPHANIE DELNUA Grocery Sacker Assessment Encounter Date Assessment Date Assessment LastModified [...] prescription she will take Advil or Aleve fsvt-rvb-[id number] when necessary. She states she had a [...] D, 25-hydroxy , total, serum 2023 024 [email or web address] [facility], [address], [place], [address], 04/17/202 5 08:57:56 CMP, serum or plasma 2023 024 [email or web address], [address], [place], [address], 5 08:57:56 CBC w/ auto diff 2023 024 [email or web address], [address], [place], [address], 5 08:57:56 TSH + free T4, serum 2023 024 [email or web address], [address], [place], [address], 5 08:57:56 lipid panel, serum 2023 024 [email or web address], [address], [place], [address], 5 08:57:56 vitamin D, 25-hydroxy , total, serum 2023 024 [email or web address], [address], [place], [address], 4 11:50:15 CMP, serum or plasma 2023 024 [email or web address], [address], [place], [address], 4 11:50:15 CBC w/ auto diff 2023 024 [email or web address], [address], [place], [address], 4 11:50:16 TSH + free T4, serum 2023 024 [email or web address], [address], [place], [address], 4 15:02:06 lipid panel, serum 2023 024 [email or web address], [address], [place], [address], 5 09:20:52 vitamin D, 25-hydroxy , total, serum 2023 024 [email or web address], [address], [place], [address], 4 11:50:15 CMP, serum or plasma 2023 024 [email or web address], [address], [place], [address], 11:50:14 CBC w/ auto diff 2023 024 [email or web address], [address], [place], [address], 11:50:14 TSH + free T4, serum 2023 024 [email or web address], [address], [place], [address], 11:50:15 lipid panel, serum 2023 024 [email or web address], [address], [place], [address], 11:50:[address] referral - Please call patient to schedule. 2023 024 Estephanie Deluna MD, [address], [address], [place], [address], 16:27:45 rn birthing referral - Please call patient to schedule. 2023 024 STEPHANIE Musa DPM, [address], [address], [place], [address], 10:37:43 orthopedic surgeon referral 2023 024 [email or web address] Rashid Hughes MD, [address] [facility], [place], [address], 4 09:28:32 Procedures colonoscop y screening (PROC) - Please call patient to schedule. 2023 024 [email or web address] Alaina Eagle MD, [address] [facility], [address], [place], [address], 4 16:15:04 injection/ aspiration joint/burs a (PROC) 2023 024 [email or web address] In-Office Order, Internal Use Only DO Not Attach Compendium DO Not Attach Compendium, Do Not Delete/merge, [address] 4 12:33:00 colonoscop y screening (PROC) 2023 024 [email or web address] Gillian Gonzalez MD, [address] [facility], [facility] [address], [place], [address], 4 11:49:25 colonoscop y screening (PROC) 2023 024 [email or web address] Gonzalez MD, [address] [facility], [facility] [address], [place], [address], 4 11:49:23 Surgeries None recorded. Imaging XR, wrist, 3 or more view - Stat hold and call Dr Reyna ramirez 2023 024 [facility] ([facility] Sched[facility]), [address] [place], [address], 4 11:24:08 Medication Orders Crestor 10 mg tablet 2023 024 [facility], [address] [facility], [place], [address], 5 14:05:53 bupivacain e HCl 0.5 % (5 mg/mL) injection solution 2023 024 [email or web address] [facility], [address] [place] [address], [address], 4 13:54:12 Kenalog 10 mg/mL suspension for injection 2023 024 [email or web address] [facility], [address] [place] [address], [address], 4 13:54:12 prednisone 10 mg tablets in a dose pack 2023 024 [email or web address] [facility], [address] [place] [address], [address], 4 17:11:16 Patient TargetsNo targets recorded. Patient InstructionsNo instructions recorded. Reason for Referral Orthopedic Surgeon Referral for Pain of right wrist Referring Physician: Megan Kraft, Internal Medicine, Encounter Date: 02/02/2024 Digital Marketing Lead Referral for Plan tar fasciitis of right foot Please call patient to schedule. Referring Physician: Megan Kraft Internal Medicine, Encounter Date: 07/10/2024 Grocery Sacker Referral for Sc reening for cardiovascular system disease Please call patient to schedule. Referring Physician: Megan Kraft Internal Medicine, Encounter Date: 07/10/2024 Results Created Date Observation Date Name Description Value Unit Range Abnormal Flag Note LastModifiedBy Organization Detail LastModifiedTime 02/02/20 24 02/02/2024 XR, wrist , 3 or more view [facility] [address] [place] [address] Patien t Name: MARY JANE HENRIQUEZ Access ion #: [id number] Sex: F : 1959 4 Dictat ed By: Ashley Velasquez Attend ing Physic corina: HEATHER VILLATORO Physic corina: HEATHER VILLATORO Exam Date: 2023 [...] at 2023 10:22: 55 AM Page 1 [email or web address] [facility] (Imaging) [address] [place], [address], 05/07/2024 16:05:35 02/02/20 24 02/02/2024 imagi ng/di agnos tic resul t No observ ation record ed[facility] [address] [place], [address], 02/02/2024 11:25:58 Result Notes Documentation Provider Name and Address Organization Details Recorded Time Xr, Wrist, 3 Or More View : [facility] [address], [place] [id number] Patient Name: MARY JANE HENRIQUEZ Sex: F : 1960 Dictated By: Ashley Velasquez Attending Physician: MEGAN KRAFT Ordering Physician: MEGAN KRAFT Exam Date: 02/02/2024 09:52 AM Exam Name: XR WRIST RT 3V+ Admitting Diagnosis(es): CLINICAL INDICATION: pain right wrist TECHNIQUE: 3 radiographic views of the right wrist were obtained. Comparison: none FINDINGS/ IMPRESSION: There is no evidence of acute fracture or dislocation. There is moderate osteoarthrosis of the first carpometacarpal joint. There is no radiopaque foreign body. 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 Completed Not Available [facility] 3 14:59:04 Liver enzymes outside reference range 938415694 Completed Not Available [facility] 3 14:59:04 Abdominal pain 95922053 Active 2016 Not Available [facility] 3 14:59:04 Menopausa l symptom 98658502 Active Not Available [facility] 3 14:59:04 Weight increased 809509356 Active Not Available [facility] 3 14:59:04 Eruption 359896674 Active Not Available [facility] 3 14:59:04 Bronchiti s 52879642 Active Not Available [facility] 3 14:59:05 Sinusitis 83442683 Active Not Available [facility] 3 14:59:05 Osteoarth ritis 360772316 Active Not Available [facility] 3 14:59:05 Diarrhea 28062419 Active 2016 Not Available [facility] 3 14:59:05 Fatigue 39703979 Active Not Available [facility] 3 14:59:05 Groin mass 206117462 Active 2022 Dimitry yu MD [address], [address], [place], [address] , [employer] [facility] 3 13:39:01 Vitamin D deficienc y 70954975 Active 2023 Megan ramirez MD [address], [address], [place], [address] , [employer] [facility] 4 15:48:21 Pain of left hip joint 38769913727 9100 Active 2023 Megan ramirez MD [address], [address], [place], [address] , [facility] 4 16:01:57 Urinary symptoms 797856209 Active 2023 Louise Burt MA null, [place] [facility] 4 16:51:31 Allergic rhinitis 42951811 Active 2023 Louise Burt MA null, [place] [facility] 4 14:05:28 Pain of right wrist 20543035690 9100 Active 2023 Megan ramirez MD [address], [address], [place], [address] , [facility] 4 10:17:13 Hyperlipi demia 13988218 Active 2023 Megan ramirez MD [address], [address], [place], [address] , [facility] 4 10:29:00 Osteoarth rosis of the carpometa carpal joint of the thumb 51919150 Active 2023 Magali Mitchell null, [place] [facility] 4 12:31:23 Contusion of right wrist 14329236254 833901 Active 2023 KARMA Reese [address], [address], [place], [address] , [facility] 4 14:17:33 Upper respirato ry infection 28543862 Active 2023 Louise Burt MA null, [facility] 4 12:50:10 Plantar fasciitis of right foot 22447276436 781852 Active 2023 Megan ramirez MD [address], [address], [place], [address] , [facility] 4 17:33:26 Cough 16727093 Active 2023 Graciela Jaramillo MA null, [place] [facility] 4 15:33:31 Acute urinary tract infection 803476896 Active 2024 [facility] 5 17:35:28 Problem Notes None recorded. Procedures Surgical History Date Name Laterality Status Provider Name and Address Organization Details Recorded Time 05/25/20 excision completed Diann Nicholson MA [facility] 05/26/2023 16:08:46 other completed Diann Nicholson MA [facility] 05/04/2023 15:19:31 Appendectomy completed Diann Nicholson MA [facility] 05/04/2023 15:19:41 Tonsillectomy completed Diann Nicholson MA [facility] 05/04/2023 15:19:49 Elbow arthroscopy/surge ry completed NIR Zamora [facility] 10/12/2023 15:34:20 other completed Anna Rutherford Reji [facility] 10/12/2023 15:36:07 Imaging Results None recorded. Procedure Notes None recorded. Medical Equipment None Reported. Allergies Allergen ID Allergen Name Allergen Category Reaction Reaction Severity Criticality Documentation Date Start Date Code Code System Note Provider Name and Address Organization Details Recorded Time 20063 codeine medicatio n itching Not available Not available 11/24/2022 2670 RxNorm Not Available [facility] 3 15:02:34 22252 Substance with sulfonami de structure and antibacte rial mechanism of action (substanc e) medicatio n nausea moderate Not available 05/05/2023 73457 8003 SNOMED [facility]ina [facility] 3 11:59:02 Medications Name Sig Start Date [...] mg by injectio n route. 2023 active [facility]: 0003-049 4-20 Not Available Not Available Not [...] rectal route at bedtime for 6 days. 08/07 /2017 completed Not Available Not Available Not Available [...] Available Not Available Not Available Afluria Qd (36 mos up)(PF)60 mcg (15 mcg x4)/0.5 [...] in Arterial blood by Pulse oximetry Systolic And Diastolic Provider Name and Address Organization Details Last Updated DateTime 4 154.94 cm 23.8 kg/m2 02789.6 4 g 97.5 [degF] 80 /min 99 % 99 % 108/66 mm[Hg] Jill Hightower MA [facility] [employer] [facility] 4 10:08:50 Date Recorded Body height Body mass index (BMI) Body weight Body temperature Heart rate Systolic And Diastolic Provider Name and Address Organization Details Last Updated DateTime 4 154.94 cm 23.1 kg/m2 46578.0 7 g 97.6 [degF] 84 /min 114/64 mm[Hg] NIR Zamora [facility] [employer] [facility] 4 16:31:04 Date Recorded Body height Body mass index (BMI) Body weight Provider Name and Address Organization Details Last Updated DateTime 02/10/2024 154.94 cm 23.1 kg/m2 26629.27 g NIR Chirinos [facility] 02/10/2024 12:14:12 Date Recorded Body height Body mass index (BMI) Body weight Provider Name and Address Organization Details Last Updated DateTime 04/09/2024 154.94 cm 24 kg/m2 38285.23 g Magali Mitchell [facility] 04/09/2024 09:41:42 Date Recorded Body height Body mass index (BMI) Body weight Body temperature Heart rate Oxygen saturation Oxygen saturation in Arterial blood by Pulse oximetry Systolic And Diastolic Provider Name and Address Organization Details Last Updated DateTime 154.94 cm 24.9 kg/m2 64874.1 9 g 96.8 [degF] 81 /min 99 % 99 % 110/68 mm[Hg] Jill Hightower MA [facility] 17:10:24 Social History Question Answer Notes LastModified by Organization Details LastModified Time Tobacco Smoking Status Never Smoker [facility] 05/04/2023 15:23:54 Do You Have An Advance Directive? No Information not available 10/12/2023 What Is Your Level Of Caffeine Consumption? [...] Was Ill? No Information not available 10/12/2023 What Type Of Diet Are You Following? REGULAR Information not available 10/12/2023 Which Illicit Or Recreational Drugs Have You Used? Edibles Occasionally Information not available 10/12/2023 What Is The Highest Grade Or Level Of School You Have Completed Or The Highest Degree You Have Received? [id number] Information not available 10/12/2023 Have There Been Any Changes To Your Family Or Social Situation? No baljeet Information not available 02/02/2024 What Is The Fluoride Status Of Your Home? Unknown Information not available 10/12/2023 Do You Use Insect Repellent Routinely? No Information not available 02/02/2024 Where Do You Live? SingleLevelHouse Information not available 10/12/2023 Do You Have A Medical Power Of Project Management Director? No Information not available 10/12/2023 What Was The Date Of Your Most Recent Tobacco Screening? 07/10/2024 Information not available 07/10/2024 How Many Children Do You Have? 2 Information not available 02/02/2024 Do You Have Any Pets? Yes Information not available 10/12/2023 What Is Your Relationship Status? Information not available 05/04/2023 Do You Use Your Seat Belt Or Car Seat Routinely? Yes Information not available 10/12/2023 Do You Have Smoke And Carbon Monoxide Detectors In Your Home? Yes Information not available 10/12/2023 Are You Passively Exposed To Smoke? No Information not available 10/12/2023 Are There Any Smokers In Your House? No Information not available 10/12/2023 Do You Use Sunscreen Routinely? No Information not available 02/02/2024 Has Tobacco Cessation Counseling Been Provided? No N/A Information not available 10/12/2023 Have You Recently Traveled Abroad? No Information not available 10/12/2023 Have You Used IV Drugs? No Information not available 02/02/2024 Sex: Female Functional Status Question Answer Note LastModified by Organizat ion Details LastModified Time Do you use any illicit or recreational drugs? Yes Information not available 10/12/2023 Do you or have you ever used any other forms of tobacco or nicotine? No Information not available 10/12/2023 What is your level of alcohol consumption? Occasional Information not available 05/04/2023 Are you currently employed? 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 Occasional Information not available 10/12/2023 Mental Status Question Answer Note LastModified by Organization D etails LastModified Time Do you feel stressed (tense, restless, nervous, or anxious, or unable to sleep at night)? [id number] Information not available 10/12/2023 Family History Relationship Description Onset Age of this Age Resolved Age Notes LastModified by Organization Details LastModified Time Father Hypertensive disorder [email or web address] Not available 2022 15:20:34 Father Diabetes mellitus [facility] Not available 2022 15:20:50 Daughter Multiple sclerosis Not available 06/26 16:38:09 Mother Malignant tumor of breast [email or web address] Not available 06/26 16:38:10 Medical History Condition Response NERVE DISEASE N BLINDNESS N RHEUMATIC FEVER N KIDNEY STONES N BLADDER PROBLEMS N MRSA N OTHER # 1 N POLIO N LUNG DISEASE/DISORDER N HISTORY OF DRUG ABUSE N RADIATION / CHEMOTHERAPY N COPD N Other # 2 N BLOOD DISEASES N EAR OR HEARING PROBLEMS N MUMPS N SHINGLES N DEPRESSION (INCLUDING POST ) N BOWEL PROBLEMS N FAILED BACK SYNDROME N STROKE/TIA N ULCERS N BENIGN PROSTATIC HYPERPLASIA N MEASLES N HYPOTENSION N MYOCARDIAL INFARCTION N OBESITY N GERD/NAUSEA N ANEURYSM N URINARY/BLADDER/KIDNEY PROBLEMS N CORONARY ARTERY DISEASE (CAD) N Do you have Advance directive? N ADDICTION CONCERNS N Impotence N ENDOMETRIOSIS N USE OF BLOOD THINNERS N SKIN PROBLEMS N GASTROINTESTINAL DISORDER N PERIPHERAL VASCULAR DISEASE N MUSCLE,JOINT OR BONE PROBLEMS N GASTROINTESTINAL BLEEDING N BLOOD CLOTS N ASTHMA N CATARACTS N Abdominal Pain N ERECTILE DYSFUNCTION N ARTERIAL INSUFFICIENCY N VARICOSITIES N GI PROBLEMS N Low Testosterone N INFERTILITY N AIDS/HIV N CHEMOTHERAPY / RADIATION N LIVER DISEASE N MALE HYPOGONADISM N HYPERTENSION N Deficiency N TOURETTE'S N ANXIETY DISORDER N BLOOD TRANSFUSION N ANEMIA/BLOOD DISORDER N CHRONIC EAR INFECTIONS N TUBERCULOSIS N GLAUCOMA N FOOT PROBLEM N DIVERTICULITIS N SLEEP APNEA N CHICKENPOX N BACK INJECTIONS N ALLERGIES/HAYFEVER N INFECTIOUS DISEASE N PROSTATE N HEART ARRHYTHMIA N INSOMNIA N ESRD N HIGH CHOLESTEROL / HYPERLIPIDEMIA N HYPERTHYROIDISM [...] Brain Problems N HERPES N DEMENTIA N SEIZURES/EPILEPSY N HEADACHES/MIGRAINES N VASCULAR DISEASE N PACEMAKER N DIZZINESS N KIDNEY DISEASE N HEART DISEASE/HEART PROBLEMS N MULTIPLE SCLEROSIS N NEUROPSYCHOLOGICAL N CARDIAC ARRHYTHMIA N CANCER: SPECIFY N Gall Stones N ATRIAL FIBRILLATION N PULMONARY EMBOLISM N AUTOIMMUNE DISEASE N [...] virus, quadrivalent, PF 07/07/2016 completed Not Available [facility] 15:02:29 Influenza, split virus, trivalent, PF 08/29/2013 completed Not Available [facility] 2022 15:02:30 Past Encounters Encounter ID Performer Location Encounter Start Date Encounter Closed Date Diagnosis/Indication Diagnosis SNOMED-CT Code Diagnosis ICD10 Code Diagnosis Note [id number] Dimitry yu MD [facility] General Surgery [address] [address] 05/05/2023 11:11:13 05/13/2023 08:27:47 Groin mass 303257589 R19.00 Left groin [id number] Dimitry yu MD [facility] General Surgery [address] [address] 05/17/2023 09:46:31 05/17/2023 12:42:04 Groin mass 775378687 R19.00 Left groin [id number] Dimitry yu MD [facility] General Surgery [address] [place] [address] 06/02/2023 10:20:40 06/02/2023 12:21:31 [id number] Megan ramirez MD [facility] Internal Med [place] [address] [address] 10/12/2023 15:17:59 10/12/2023 16:09:42 Screening - NAD 758039581 Z13.9 C-scope: Get this done Mammogram: Get this donePAP: Sees Dr Solano, is no OC for PMSDEXA: Get this Declined flu shot 10/12/2023 Get tdap if not doneGet shingrix and RSV vaccine RTC in 3 months, do labs, ER if worse, she did verbalize her understand ing of the above Screening mammography 24 970390 Z12.31 Screening for osteoporosis 988502692 Z13.820 Z78.0 Long-term drug therapy 423509878 Z79.899 Vitamin D deficiency 347 98077 E55.9 Screening for malignant neoplasm of colon 985080223 Z12.11 Pain of le ft hip joint 8257095459 44079 M25.552 Get a referral to Dr Hughes [id number] Rashid Hughes MD [facility] [place] [address] 11/07/2023 10:11:22 11/07/2023 10:50:51 Pain of left hip joint 3465123685 68902 M25.922 [id number] Megan ramirez MD [facility] Internal [place] [address] [address] [id number] 02/02/2024 09:54:42 02/02/2024 10:38:56 Screening - NAD 934725301 Z13.9 C-scope: Get this done Mammogram: Get [...] ing of the above Long-term drug therapy 125730344 Z79.899 Vitamin D deficiency 347 20971 E55.9 Screening for malignant neoplasm of colon 425336052 Z12.11 Pain of le ft hip joint 7186385937 95483 M25.552 Keysha Moore SURGICAL ASSIST ortho 11/07/2023 Today 02/02/2024 , this is resolved Pain of right wrist 3169 299672 89539 M25.531 Get xray R wristGet a referral to ortho Addendum: 02/02/2024 :Xray: No fracture, as per radiology, d/w patient Hyperlipidemia 14051310 E78.5 Not on any medsDiet and exerciseRe peat the labs [id number] Megan ramirez MD [facility] Internal Med [address] [facility] [place] [address] 02/08/2024 16:00:42 02/08/2024 16:50:12 Screening - NAD 508067143 Z13.9 C-scope: Get this done Mammogram: Get [...] of the above Vitamin D deficiency 347 25320 E55.9 Screening for malignant neoplasm of colon 494082498 Z12.11 Pain of le ft hip joint 2146169307 46812 M25.552 Keysha Moore SURGICAL ASSIST ortho 11/07/2023 Today 02/02/2024 , this is resolved Pain of right wrist 3169 022216 28293 M25.531 Get xray R wristGet a referral to ortho Addendum: 02/02/2024 :Xray: No fracture, as per radiology, d/w patient OV 02/08/2024 : Has an apt with Adalid PARADA on 02/10/2024 Hyperlipidemia 69403551 E78.5 Not on any medsDiet and exerciseRe peat the labs [id number] Rashid Hughes MD [facility] Ortho Sarah Kemp [address] [place] [address] 02/10/2024 12:03:53 02/10/2024 12:38:07 Pain of right wrist 7367035033 81132 M25.531 Osteoarthr osis of the carpometacarpal joint of the thumb 76726552 M18.9 osteoarthr itis of the right 1st carpometac arpal joint Contusion of right wrist 7829506435 5400956 S60.211A [id number] Rashid Hughes MD [facility] Ortho Sarah Kemp [address] [place] [address] 04/09/2024 09:36:32 04/09/2024 10:12:00 Pain of right wrist 8734769854 22621 M25.531 Osteoarthr osis of the carpometacarpal joint of the thumb 10570485 M18.9 osteoarthr itis of the right 1st carpometac arpal joint [id number] Megan ramirez MD [facility] Internal Med [facility] [address] [facility] [address] [place] [address] 07/10/2024 16:36:44 07/10/2024 17:34:17 Screening - NAD 092665957 Z13.9 C-scope:Dr Gonzalez 05/04/2024 , next in [...] of the above Vitamin D deficiency 347 97844 E55.9 Screening for malignant neoplasm of colon 817161380 Z12.11 Pain of le ft hip joint 8746150846 10084 M25.552 Keysha Moore NP ortho 11/07/2023 Today 02/02/2024 , this is resolved Pain of right wrist 3169 356556 73406 M25.531 Get xray R wristGet a referral to ortho Addendum: 02/02/2024 :Xray: No fracture, as per radiology, d/w patient OV 02/08/2024 : Has an apt with Adalid PARADA on 02/10/2024 OV 07/10/2024 :Adalid PARADA 06/10/2024 Hyperlipidemia 99557756 E78.5 Get on crestor 10mg daily 07/10/2024 , side effects explained to her, she did state that her sister and mother has 'bad side effects' with chol medicine, unclear if with statins, she will notify if any symptoms occur with statin useDiet and exerciseRe peat the labs Screening for cardiovascular system disease 137171144 Z13.6 Plantar fa sciitis of right foot 8786852331 7649493 M72.2 Health Concerns Section Related Observation LastModified by Organization Detai ls LastModified Time None Recorded Concern Status LastModified by Organization Details LastModified Time None Recorded Advance Directives Directive N: Payers Insurance Date Sequence Insurance Name Policy Number Policy Carty Covered Member ID Carty Member ID Guarantor Name 07/10/2024 1 [facility] [id number] Mary Jane L Maxwell [id number] Mary Jane L Maxwell 07/10/2024 1 [facility] ON OR AFTER 03/26/21 (MEDICAID REPLACEMENT - HMO) Mary Jane L Maxwell [id number] Mary Jane L Maxwell 07/10/2024 1 [facility] PRIOR TO 03/26/2021 (MEDICAID REPLACEMENT - HMO) Mary Jane L Maxwell [id number] Mary Jane L Maxwell Notes Date Note [...] is doing well today Megan Kraft MD [address] [place] [address] [place], [facility] [address], [place], [address], [place] [facility] [employer] 02/02/2024 17:52:37 02/08/2024 text/html OV 10/12/2023:He re [...] Kraft MD [address], [address], [place], [address], [place] [facility] [place] [facility] 02/08/2024 18:00:53 02/10/2024 text/html the patient is [...] 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 She does note some deformity around the base of the thumb she tries to use her left hand as much as she can but typically has to use both hands for most of the cleaning that she does. Occasionally she will take some okqv-jky-hthdipv medication to help with this but states [...] fan hit her wrist she went to [facility] to have x-rays performed. X-rays demonstrated no acute fracture lesion or mass. The radiologist notes moderate osteoarthritis of the 1st CMC joint however I disagree I think this is severe in nature that is jpps-zh-ofoi with a scalloping of the trapezium due [...] with the patient. KARMA Reese [address], [facility] [address], [place], [address], [employer] [facility] [employer] 02/10/2024 14:18:04 04/09/2024 text/html The patient is [...] rather avoid that but will take some twdg-dkj-rrfboly Advil or Aleve as needed. She comes in today to talk about further treatment options for the future. KARAM Reese [address], [facility] [address], [place], [address], [employer] [facility] [employer] 04/09/2024 10:16:20 07/10/2024 text/html OV 10/12/2023:He re [...] do the labs Megan Kraft MD [address] [facility], [facility] [address], [place], [address], [place] - [facility] 07/11/2024 17:38:50 OBGyn Episode No OBEpisode recorded.
--- OUTSIDE RECORDS SUMMARY | 2025-04-02 15:39 | XMS_ITS | Patient Health Record ---
Author Organization Formerly [facility] Address [address] [place] [address] Care Team Providers Care Hydrate Control Tender Name Role Phone Lawrence Menon Primary Care [...] be dtime as needed Orally Once a day; Duration: 30 day(s) Active Medrol (Roderick) 4 MG as directed Orally 08/09/2022 Not-Taking hydrOXYzine HCl 25 mg TAKE 1 TABLET BY MOUTH THREE TIMES A DAY NEEDED; Duration: 30 Active Meloxicam 15 mg TAKE 1 TABLET BY MOUTH DAILY; Duration: 30 Active Fluticasone Propionate 50 MCG/ACT 1 spray in each nostril Nasally twice a day 08/26/2022 Active Activella 1-0.5 MG 1 tablet Orally Once a day; Duration: 30 day(s) Active Zinc 50 MG 1 tablet Orally Once a day; Duration: 30 day(s) Active Glucosamine Active Vitamin D-3 25 MCG (1000 UT) 1 capsule Orally Once a day; Duration: 30 day(s) Active One Daily - 1 tablet Orally Once a day; Duration: 30 day(s) Active Immunizations Vaccine Route Administration Date Status Comme nts COVID-19 Moderna 1ST IM Intramuscular 05/08/2021 Administered COVID-19 Moderna 2nd IM Intramuscular 06/05/2021 Administered EUA date 0. Consent signed and reviewed. Patient tolerated well. FLU VAC NO PRSV 4VAL 6 mo+ IM Intramuscular 07/28/2021 Administered pt tolerated we ll. Social History Tobacco Use: Social History Observation Description Date Details (start date - stop date) Never Smoker NA - NA Sex Assigned At : Social History Observation Description Sex Assigned At Female Dont use, Tobacco Use/Smoking Question Answer Notes Are you a nonsmoker Problems Problem Type SNOMED Code ICD Code Onset Dates Problem Status W/U Status Risk Notes Problem Chronic pain (74617707) Other chronic pain (G89.29) Active confirmed Problem Depression (081036319) Depression (F32.9) Active confirmed Problem Anxiety (63896904) Anxiety (F41.9) Active confirmed Problem Recurrent sinusitis (488297916) Recurrent sinusitis (J32.9) Active confirmed Problem 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 Plan Of Treatment No Information Insurance Providers Payer Name Payer Address Payer Phone Subscriber Number Group Number Insured Name Patient Relationship to Insured Coverage Start Date Coverage End Date [facility] Attn Claims Department [address] [phone] [id number] Laura Arreola Self - patient is the insured 1 [facility] Attn Claims Department [address] [phone] [id number] Laura Arreola Self - patient is the insured 1 [facility] Attn Claims Department [address] [address] [phone] [id number] Laura Arreola Self - patient is the insured 2 Medical (General) History Surgical History Surgery Date(Month/Year) appendectomy tonsillectomy endometrial ablation breast augmentation Hospitalization History Reason Date(Month/Year) childbirth
== END 2025-04-02 15:26 | disposition home or self-care (01) ==
LOC: ANHIMG 15:33
PROVIDERS: PCP Emergency Medicine; Visit Provider Emergency Medicine
DX: G51.8 Other disorders of facial nerve (principal)
CPT/HCPCS: 70551

== ENCOUNTER 2025-04-25 13:13 | Emergency (ER) | payer OTHER, SELFPAY ==
--- NOTE | ~2025-04-25 | CT_ITS ---
EXAMINATION: CT abdomen pelvis w con DATE: 04/25/2025 17:25 INDICATION: Abnormal noncontrast CT of the abdomen and pelvis TECHNIQUE: Computed tomography (CT) of the abdomen and pelvis was performed with 100 mL Omnipaque-350 intravenous contrast. Automated exposure control and iterative reconstruction technique were employe d. The dose-length product was 296.12 mGy-cm. COMPARISON: 04/25/2025 10:45 PM FINDINGS: Mild bibasilar atelectasis. Heart size is normal. No pericardial or pleural effusion. Focal hepatic s teatosis at the ligamentum teres. Gallbladder, spleen, pancreas, bilateral adrenal glands and right k idney are normal. 7 mm left renal cyst. Low-attenuation region of concern at the head of the pancreas appears to correspond to a normal common bile duct and main pancreatic duct. Bowels are unremarkable with no wall thickening or obstruction. Bladder, anteverted uterus and bilateral adnexa are unremark able. No free intraperitoneal gas or fluid. No pathologically enlarged abdominal or pelvic lymphadeno enedelia. Moderate disc height loss at T12-L1. Mild spondylosis in the more cephalad thoracic spine and minimal lumbar spondylosis.. IMPRESSION: 1. No acute intra-abdominal/pelvic process. Low-attenuation lesion of concern at the head of the panc reas appears to correspond to the common bile duct and main pancreatic duct. Reviewed, dictated and finalized at location A. IMPRESSION: 1. No acute intra-abdominal/pelvic process. Low-attenuation lesion of concern a t the head of the pancreas appears to correspond to the common bile duct and ma in pancreatic duct.
--- NOTE | ~2025-04-25 | CT_ITS ---
CLINICAL INDICATION: Left flank pain COMPARISON: None. TECHNIQUE: Multiple contiguous axial images of the abdomen and pelvis were performed without the admi nistration of intravenous contrast The dose-length product (DLP) was 337.25 mGy-cm. Automated exposure control and iterative reconstruction technique were employed. FINDINGS/OBSERVATIONS: Visualized lower thorax: The bilateral lung bases are clear. The heart is of normal size, without pericardial effusion. Small hiatal hernia is present. Liver: The liver demonstrates homogeneous attenuation and is not enlarged. Gallbladder and biliary system: The gallbladder is only minimally distended, and otherwise unremarkable. Pancreas: Limited evaluation of the pancreas secondary to the lack of intravenous contrast. However, infiltration of the fat within the lesser sac as well as at the root of the mesentery is det ected, best visualized on sagittal series for which contrast enhanced imaging is recommended. In addition, a subtle 7.5 mm focus of decreased attenuation is identified within the head of the panc reas for which further evaluation with contrast-enhanced imaging is needed. Spleen: The spleen demonstrates homogeneous attenuation and is not enlarged. Kidneys: The bilateral kidneys are unremarkable, without hydronephrosis or renal calculi. Adrenal glands: Unremarkable. Gastrointestinal tract: Fecal stasis within the colon. Appendix: The appendix is not definitively visualized. However, no pericecal inflammatory change is identified suggest the presence of acute appendicitis. Vasculature: Unremarkable. Lymph nodes: Limited evaluation without intravenous contrast. Pelvic structures: The bladder is only minimally distended, and otherwise unremarkable. The uterus is anteverted and anteflexed, and otherwise unremarkable. Body wall and musculoskeletal: No significant degenerative disease within the lower thoracic or lumbosacral spine. IMPRESSION: Abnormal findings at the root of the mesentery and within the lesser sac for which contrast enhanced imaging is needed (contrast-enhanced CT examination of the abdomen and pelvis) for further evaluation . Reviewed, dictated and finalized at location A. IMPRESSION: Abnormal findings at the root of the mesentery and within the lesser sac for wh ich contrast enhanced imaging is needed (contrast-enhanced CT examination of th e abdomen and pelvis) for further evaluation.
[2025-04-25 13:37] VITALS: BP 124/58; PULSE 90; RESP 16; TEMP 36.8; O2SAT 99
--- OUTSIDE RECORDS SUMMARY | 2025-04-25 14:35 | XMS_ITS | Patient Health Record ---
Author Organization [facility] Address [address] [place] [address] Care Team Providers Care Supervisor Wood Room Name Role Phone Lawrence Menon Primary Care [...] W/U Status Risk Notes Problem Chronic pain (88286651) Other chronic pain (G89.29) Active confirmed Problem Depression (666385650) Depression (F32.9) Active confirmed Problem Anxiety (83666190) Anxiety (F41.9) Active confirmed Problem Recurrent sinusitis (347717874) Recurrent sinusitis (J32.9) Active confirmed Problem 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 Plan Of Treatment No Information Insurance Providers Payer Name Payer Address Payer Phone Subscriber Number Group Number Insured Name Patient Relationship to Insured Coverage Start Date Coverage End Date [facility] Attn Claims Department [address] [phone] [id number] Laura Arreola Self - patient is the insured 1 [facility] Attn Claims Department [address] [address] [phone] [id number] Laura Arreola Self - patient is the insured 1 [facility] Attn Claims Department [address] [address] [phone] [id number] Laura Arreola Self - patient is the insured 2 Medical (General) History Surgical History Surgery Date(Month/Year) appendectomy tonsillectomy endometrial ablation breast augmentation Hospitalization History Reason Date(Month/Year) childbirth
--- OUTSIDE RECORDS SUMMARY | 2025-04-25 14:35 | XMS_ITS | Continuity of Care Document ---
Author Organization [facility] Address [address] [place] [address] Phone Care Team Providers Care Sprayer Operator Name Role Phone Khadra AGUIRRE, FACC, FSCAI, Brock Unavailable U navailable Allergies, Adverse Reactions, Alerts Substance Reaction Status Criticality sulfadiazine Unknown(moderate) Active No Informa tion CODEINE SULFATE Unknown(moderate) Active No Info rmation Medications Medication Instructions Dosage Effective Dates (start - stop) Status Comments carbamazepine ER 100 mg tablet,extended release,12 hr - Active prednisolone acetate 1 % eye drops,suspension INSTILL 1 DROP INTO THE LEFT EYE TWICE DAILY - Active ezetimibe 10 mg tablet TAKE 1 TABLET BY MOUTH EVERY DAY - Active rosuvastatin 10 mg tablet TAKE 1 TABLET BY MOUTH ONCE DAILY - Active prednisone 10 mg tablet TAKE ONE TABLET BY MOUTH THREE TIMES DAILY FOR 3 DAYS, THEN 1 TAB TWICE DAILY FOR 2 DAYS, THE 1 TAB ONCE DAILY FOR ONE DAY - Active Gentle Laxative (bisacodyl) 5 mg tablet,delayed release TAKE 6 TABLETS BY MOUTH AT 8AM ON 05/03/24 - Active peg 3350-electrolytes 236 gram-22.74 gram-6.74 gram-5.86 gram solution MIX AND TAKE ONE-HALF BY MOUTH AT 5PM ON 05/03/24, THEN TAKE ONE-HALF AT 5 AM ON 05/04/24 - Active cephalexin 500 mg capsule - No Longer Active cvcfthug-lawomgtmd-zw xameth 3.5 mg/mL-10,000 unit/mL-0.1% eye drops - No Longer Active doxycycline monohydrate 100 mg tablet - No Longer Active ciprofloxacin 500 mg tablet TAKE 1 TABLET BY MOUTH TWICE DAILY No Longer Active amoxicillin 875 mg-potassium clavulanate 125 mg tablet TAKE 1 TABLET BY MOUTH EVERY 12 HOURS - No Longer Active azithromycin 250 mg tablet TAKE 2 TABLETS BY MOUTH FOR 1 DAY THEN TAKE 1 TABLET BY MOUTH DAILY FOR 4 DAYS No Longer Active Procedures Procedure Date OFFICE/OUTPATIENT VISIT, EST Advance Directives Directive Yes / No Effective Date File Name No Information Encounters Encounter Description Practice Location Reason(s) For Visit Diagnoses Date Provider Providers Copied on Encounter OFFICE/OUTPA TIENT VISIT, EST [facility], [address] [place] [address], [id number] , tel: [phone] [facility] Follow up (chief complaint) Chest pain, unspecifiedEssential (primary) hypertension 5 Ramadan Brock. [address] [place], [place], [id number] , . tel: [phone] Referring Provider: Mony Tristan, [address] [place] [address], [facility]. tel:[phone] [facility], [address] [place] [address], [id number] , tel: [phone] [facility] No Information 5 Ramadan Brock. [address] [place], [place], [id number] , . tel: [phone] [facility], [address] [place] [address], [id number] , tel: [phone] [facility] Abnormal result of other cardiovascular function studyChest pain, unspecifiedShortness of breathEssential (primary) hypertension Khadra Gutiérrez. [address], [place], [place], [id number] , [place]. tel: [phone] Family History Family Member Type Diagnosis Age At Onset Problem (finding) Family history of heart disease Payers Payer name Insurance type Covered republican ID Annie roberts(s) [facility] CI [id number] [facility] CI [id number] Social History Type Description Quantity Date Captured Comments Alcohol Use Details No Caffeine Use Details No Tobacco Use Status Current non-smoker Smoking Status Former smoker Non-Smoking Tobacco Use Details : No Details Available : No Details Available Sex Female Vital Signs Date / Time: Height Weight BMI Pulse Rate Blood Pressure Temperature Respiratory Rate Body Surface Area Head Circumference Head Circ. Percentile Wt./Shon. Percentile BMI percentile Pulse Ox Inhaled Ox 3:40 PM 59.421 kg (131.00 lbs) 90 /min 120/73 mm[Hg] 96 % Chief Complaint And Reason For Visit From encounter dated '04/23/2025 15:40'. Follow up (chief complaint) Reason For Referral Reason For Referral No Information History Of Present Illness Encounter Date Complaint History Of Prese nt Illness Follow up Functional Status Date Functional Assessmen t No Information Instructions Date Instruction Additional Infor mation No Information Assessments Type Assessment Date assessment Chest pain, unspecified 025 assessment Essential (primary) hypertension Patient Care Teams Name Effective Dates (start - stop) Status Members No Information
[2025-04-25 15:32] LABS: Add Urine Microscopic? NO; Appearance Urine Clear (Clear); Glucose Urine UA Negative (Negative); Leukocyte Esterase Ur Negative LEU/UL (Negative); Nitrate Urine Negative (Negative); Specific Grav Ur 1.020 (1.001-1.035)
[2025-04-25 15:58] LABS: Hematocrit 41.8 % (37.0-47.0); Hemoglobin 13.5 g/dL (12.0-15.0); Immature Granulocyte Percent A 0.7 % (0-0.5); Lymphocytes Absolute Auto 2.80 K/mm3 (0.9-3.2); Mean Corpuscular HGB Conc 32.3 g/dl (32-36); Mean Corpuscular Hemoglobin 30.8 pg (26-34); Mean Corpuscular Volume 95.4 fl (80-100); Nucleated Red Blood Cells Absolute Auto 0.000 K/mm3 (0.0-0.012); Nucleated Red Blood Cells Perc 0.0 % (0.0-0.2); Platelet Count Result 333 k/mm3 (150-375); Red Blood Count 4.38 M/mm3 (4.2-5.4); White Blood Count 9.7 K/mm3 (4.5-10.0)
[2025-04-25 16:09] LABS: Anion Gap 7 mmol/L (4-12); Blood Urea Nitrogen 16 mg/dL (7-17); Calcium 9.7 mg/dL (8.4-10.2); Carbon Dioxide 29 mmol/L (22-30); Chloride 100 mmol/L (98-107); Estimated CRCL calculation 61 ml/min; Estimated Glomerular Filt Rate > 60; Glucose 82 mg/dL (65-110); Potassium 3.7 mmol/L (3.4-5.0); Sodium 136 mmol/L (137-145)
--- NOTE | 2025-04-25 21:26 | ED_ITS ---
HPI - Back Pain/Injury General Chief Complaint: Back Pain/Injury Stated Complaint: FLANK PAIN X3 WEEKS. 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 No focal numbness or weakness and nonradiating, it is a slight ache and not severe Related Data Home Medications ?Medication ?Instructions ?Recorded ?Confirmed ?Last Taken ?Type Zyrtec 09/05/21 05/14/24 Unknown History cholecalciferol (vitamin D3) PO 03/16/22 05/14/24 Unknown History zinc acetate 50 mg (zinc) capsule 50 mg PO DAILY 03/16/22 05/14/24 Unknown History (Galzin) Allergies Allergy/AdvReac Type Severity Reaction Status Date / Time sulfamethoxazole (From Allergy Mild Itching Verified 01/21/25 11:43 Bactrim) trimethoprim (From Bactrim) Allergy Mild Itching Verified 01/21/25 11:43 codeine Allergy Unknown Unknown Verified 01/21/25 11:43 Review of Systems 2 Review of Systems: All systems reviewed & are unremarkable except as noted in HPI and below PMFSH Past Medical History Medical History Abnormal Pap smear of cervix Breast implant removal status (05/13/22) Ruptured silicone breast implant Screening mammogram, encounter for Surgical History Surgical History History of appendectomy History of tonsillectomy Family History Family History Father Hypertension Diabetes mellitus Mother Breast cancer Daughter Multiple sclerosis Social History Social History (Updated 05/14/24 @ 09:30 by Chica Quach MA) Smoking status: Never smoker Alcohol intake: current Alcohol use details: 1-2 month Substance use: never Substance use type: does not use Do You Feel Safe in your Home?: Yes Lack of Transportation: No Lack of Food: Never True Current Housing: I Have Housing Concerned About Future Housing: No Difficulty Paying Gas/Electric Bills: No Difficulty Paying for Meds: No Currently Unemployed: No Education: High School Diploma/GED Difficulty w/ Childcare or Family Care: No Living arrangements: other Additional living arrangements comments: significant other Occupation/Education: occupation 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 EYES: EOMI, conjunctiva normal ENT: Hearing grossly intact LUNGS: Nonlabored breathing. HEART: [Regular rate and rhythm] ABD: [Soft], [nontender to palpation] EXT: Normal range of motion SKIN: [No rashes or lesions.] NEURO: [Alert and oriented x 3. No gross focal sensory or strength deficits.] PSYCH: Normal affect Course Vital Signs Vital signs: Vital Signs Temperature 98.3 F 04/25/25 13:37 Pulse Rate 90 04/25/25 13:37 Respiratory Rate 16 04/25/25 13:37 Blood Pressure 124/58 L 04/25/25 13:37 Pulse Oximetry 99 04/25/25 13:37 Oxygen Delivery Room Air 04/25/25 13:37 Temperature 98.3 F 04/25/25 13:37 Pulse Rate 90 04/25/25 13:37 Respiratory Rate 16 04/25/25 13:37 Blood Pressure 124/58 L 04/25/25 13:37 Pulse Oximetry 99 04/25/25 13:37 Oxygen Delivery Room Air 04/25/25 13:37 MDM - Back Pain/Injury MDM Narrative Medical decision making narrative: Patient presenting with left flank pain, she wanted make sure everything was okay, it is slight ache and not severe, urine here is normal without blood or infection, I did obtain a CT non-con to rule out stone, radiologist recommended repeat scan with contrast so this is ordered, this is unremarkable also, discussed with patient, I suspect musculoskeletal, patient feels relieved, non narcotic medication provided, agreeable to outpatient management with return precautions and follow-up to PCP Lab Data 04/25/25 15:52 04/25/25 15:52 Labs: Lab Results 04/25/25 04/25/25 Range/Units 15:22 15:52 WBC 9.7 (4.5-10.0) K/mm3 RBC 4.38 (4.2-5.4) M/mm3 Hgb 13.5 (12.0-15.0) g/dL Hct 41.8 (37.0-47.0) % MCV 95.4 (80-100) fl MCH 30.8 (26-34) pg MCHC 32.3 (32-36) g/dl RDW 12.1 (11.5-14.5) % Plt Count 333 (150-375) k/mm3 MPV 8.5 (7.4-10.4) fl Immature Gran % (Auto) 0.7 H (0-0.5) % Neut % (Auto) 59.0 (45.5-73.1) % Lymph % (Auto) 28.8 (18.3-44.2) % [place] % (Auto) 9.7 H (2.6-8.5) % Eos % (Auto) 1.1 (0-4.4) % Baso % (Auto) 0.7 (0.2-1.2) % Lymph # (Auto) 2.80 (0.9-3.2) K/mm3 [place] # (Auto) 0.9 H (0.1-0.6) K/mm3 Eos # (Auto) 0.1 (0-0.3) K/mm3 Baso # (Auto) 0.1 (0.0-0.1) K/mm3 Abs Immat Gran (auto) 0.07 H (0.00-0.031) K/mm3 Absolute Neuts (auto) 5.7 (1.3-6.7) K/mm3 Absolute Nucleated RBC 0.000 (0.0-0.012) K/mm3 Nucleated RBC % 0.0 (0.0-0.2) % Sodium 136 L (137-145) mmol/L Potassium 3.7 (3.4-5.0) mmol/L Chloride 100 (98-107) mmol/L Carbon Dioxide 29 (22-30) mmol/L Anion Gap 7 (4-12) mmol/L BUN 16 (7-17) mg/dL Creatinine 0.62 L (0.7-1.0) mg/dL Estim Creat Clear Calc 61 ml/min Estimated GFR > 60 (59 - ) Glucose 82 (65-110) mg/dL Calcium 9.7 (8.4-10.2) mg/dL Urine Color Yellow (Yellow) Urine Appearance Clear (Clear) Urine pH 5.0 (5.0-9.0) Ur Specific [place] 1.020 (1.001-1.035) Urine Protein Negative (Negative) mg/dL Urine Glucose (UA) Negative (Negative) mg/dL Urine Ketones Negative (Negative) mg/dL Ur Blood (Man) Negative (Negative) Urine Nitrate Negative (Negative) Urine Bilirubin Negative (Negative) Urine Urobilinogen 0.2 (<2.0) mg/dL Leukocyte Esterase Rfl Negative (Negative) CELESTINO/UL Discharge Plan Discharge Clinical Impression: Left flank pain Patient Disposition: Home Condition: Stable Instructions: Flank Pain (ED) Additional Instructions: Please follow up with your PCP; you can try the medications as prescribed. If your symptoms return or worsen, you can always return to the ER. Patient Language: [place] Prescriptions: New methocarbamol 750 mg tablet 750 mg PO TID PRN (Reason: muscle spasm) Qty: 30 0RF lidocaine 5 % adhesive patch,medicated 1 patch topical DAILY Qty: 15 0RF Rx Instructions: leave on most painful area for up to 12 hrs No Action Zyrtec Galzin 50 mg (zinc) capsule 50 mg PO DAILY cholecalciferol (vitamin D3) PO Follow-up/Referrals: Kun,Mony Wells MD [Primary Care Provider] -
== END 2025-04-25 17:56 | disposition home or self-care (01) ==
PROVIDERS: Emergency Provider Emergency Medicine; PCP Emergency Medicine
DX: R10.9 Unspecified abdominal pain (principal)
CPT/HCPCS: 36415; 74176; 74177; 74178; 80048; 81003; 85025; 99284; Q9967

== ENCOUNTER 2025-06-20 09:47 | Outpatient (CLI) | payer OTHER, SELFPAY ==
--- OUTSIDE RECORDS SUMMARY | 2025-06-20 10:41 | XMS_ITS | Patient Health Record ---
Author Organization [facility] Address [address] [place] [address] Care Team Providers Care Allergy And Immunology Specialist Name Role Phone Lawrence Menon Primary Care [...] W/U Status Risk Notes Problem Chronic pain (42486531) Other chronic pain (G89.29) Active confirmed Problem Depression (002623580) Depression (F32.9) Active confirmed Problem Anxiety (63505606) Anxiety (F41.9) Active confirmed Problem Recurrent sinusitis (459215931) Recurrent sinusitis (J32.9) Active confirmed Problem Blepharospasm (29357477) 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 Plan Of Treatment No Information Insurance Providers Payer Name Payer Address Payer Phone Subscriber Number Group Number Insured Name Patient Relationship to Insured Coverage Start Date Coverage End Date [facility] Attn Claims Department [address] [address] [phone] [id number] Laura Arreola Self - patient is the insured 1 [facility] Attn Claims Department [address] [phone] [id number] Laura Arreola Self - patient is the insured 1 [facility] Attn Claims Department [address] [address] [phone] [id number] Laura Arreola Self - patient is the insured 2 Medical (General) History Surgical History Surgery Date(Month/Year) appendectomy tonsillectomy endometrial ablation breast augmentation Hospitalization History Reason Date(Month/Year) childbirth
--- NOTE | 2025-06-24 10:09 | P.NEURO_ITS ---
Neurology EEG Report General Information Date of Study: 06/20/25 TEST Electroencephalogram DIAGNOSIS tic disorder. CONDITION OF RECORDING neurodiagnostic lab EEG NUMBER [id number] CLINICAL HISTORY 64-year-old with history of tic disorder. She started having these in 2020 after a lot of stressful events such as losing her twin sister. The take it on the left side of the face. The tech noted that the take worsened when she gets stressed. She has tried Botox which did not agree with her. She has been on phenobarbital. EEG DESCRIPTION During wakefulness the background activity consists of posterior dominant alpha rhythm at 10-11 hertz with an amplitude of 25-50 microvolts which appears well- formed and reactive to eye opening. Anteriorly low amplitude mixed frequency activity was seen. Photic stimulation was performed during which symmetric driving response was seen at several flash rates. Hyperventilation not performed. Patient did not progress to stage 2 sleep. IMPRESSION this is a normal EEG obtained during awake state.
== END 2025-06-20 09:48 | disposition home or self-care (01) ==
LOC: ANHNEURO 09:49
PROVIDERS: Visit Provider Emergency Medicine
DX: F95.9 Tic disorder, unspecified (principal)
CPT/HCPCS: 95816

== ENCOUNTER 2025-08-10 11:07 | Outpatient (CLI) | payer OTHER, SELFPAY ==
--- NOTE | ~2025-08-10 | XR_ITS ---
XR lumbar spine 2-3V Indication: Chronic Lt side low back pain w/o sciatic left, Comparison: None Findings: The vertebral heights are intact. No fracture or subluxation. The disc heights are intact. Soft tissues unremarkable Impression: No acute abnormality. Reviewed, dictated and finalized at location P. EXPERIENCE RESEARCHER Impression: No acute abnormality.
--- NOTE | ~2025-08-10 | XR_ITS ---
EXAMINATION: XR sacroiliac joints min 3V, 08/10/2025 11:25 TRANSFER STATION OPERATOR HISTORY: Chronic Lt side low back pain w/o sciatic left, COMPARISON: No comparisons available. Findings: No acute fracture or malalignment. Minimal sclerosis of the sacroiliac joints. No bridging osteophyte formation, no erosions identified Soft tissues unremarkable. Impression: No acute fracture or malalignment. Reviewed, dictated and finalized at location P. SFER STATION OPERATOR Impression: No acute fracture or malalignment.
== END 2025-08-10 11:08 | disposition home or self-care (01) ==
PROVIDERS: PCP Emergency Medicine; Visit Provider Emergency Medicine
DX: M54.50 Low back pain, unspecified (principal); G89.29 Other chronic pain
CPT/HCPCS: 72100; 72202

== ENCOUNTER 2025-08-20 09:18 | Outpatient (CLI) | payer OTHER, SELFPAY | END 2025-08-20 09:19 | disposition home or self-care (01) | PROVIDERS: PCP Emergency Medicine; Visit Provider Emergency Medicine | DX: H93.13 Tinnitus, bilateral (principal) | CPT/HCPCS: 92557; 92567 ==